=== PATIENT | male | born 1965 | race Caucasian/White ===

== ENCOUNTER → 2019-08-11 16:36 | Outpatient (CLI) | payer BC, SELFPAY ==
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
== END ==
LOC: EXPTRAD 16:40
PROVIDERS: PCP Family Medicine; Visit Provider Family Medicine
DX: M77.52 Other enthesopathy of left foot and ankle (principal); Z89.422 Acquired absence of other left toe(s)
CPT/HCPCS: 73630

== ENCOUNTER 2019-09-15 00:50 | Emergency (ER) | payer BC, SELFPAY ==
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
[2019-09-15 01:00] VITALS: BP 178/111; PULSE 91; RESP 16; TEMP 36.8; O2SAT 99
--- NOTE | 2019-09-15 01:17 | PC.NURSE ---
Wounds cleaned and flushed with normal saline.
[2019-09-15 02:16] VITALS: BP 161/97; PULSE 88; PULSE 89; RESP 16; RESP 22; TEMP 36.6; O2SAT 97; O2SAT 98
== END 2019-09-15 02:50 | disposition home or self-care (01) ==
PROVIDERS: Emergency Provider Emergency Medicine; PCP Family Medicine
DX: S01.01XA Laceration without foreign body of scalp, initial encounter (principal); F41.9 Anxiety disorder, unspecified; F32.9 Major depressive disorder, single episode, unspecified; Z86.73 Personal history of transient ischemic attack (TIA), and cerebral infarction without residual deficits; I10 Essential (primary) hypertension; E78.2 Mixed hyperlipidemia; Z79.01 Long term (current) use of anticoagulants; F17.210 Nicotine dependence, cigarettes, uncomplicated; V86.59XA Driver of other special all-terrain or other off-road motor vehicle injured in nontraffic accident, initial encounter
CPT/HCPCS: 12004; 12032; 70450; 72125; 99284

== ENCOUNTER → 2020-06-26 13:44 | Outpatient (CLI) | payer BC, SELFPAY ==
--- NOTE | ~2020-06-26 | XR_ITS ---
XR tibia fibula RT 2V DATE: 06/26/2020 13:58 INDICATION: Possible brown recluse spider bite 6 months ago. Pain at mid lateral calf TECHNIQUE: AP and lateral views COMPARISON: None FINDINGS: There is a chronic benign spur-like process at the anterior tibial tuberosity. No fracture, dislocation, periosteal reaction or bone destruction of the tibia or fibula. Normal alig nment at the knee and ankle joints. No radiopaque soft tissue foreign body or subcutaneous emphysema or abnormal soft tissue calcificatio n is noted. IMPRESSION: No significant abnormality Reviewed, dictated and finalized at location B. 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
== END ==
PROVIDERS: PCP Family Medicine; Visit Provider Family Medicine
DX: M79.604 Pain in right leg (principal)
CPT/HCPCS: 73590

== ENCOUNTER 2021-02-04 15:58 | Outpatient (CLI) | payer BC, SELFPAY ==
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
== END 2021-02-04 15:59 | disposition home or self-care (01) ==
LOC: ANHIMG 16:04
PROVIDERS: PCP Family Medicine; Visit Provider Family Medicine
DX: M25.522 Pain in left elbow (principal)
CPT/HCPCS: 73080

== ENCOUNTER 2021-06-09 09:31 | Outpatient (CLI) | payer BC, SELFPAY ==
--- NOTE | ~2021-06-09 | MR_ITS ---
EXAMINATION: MR elbow RT wo con DATE: 06/09/2021 10:38 INDICATION: Right elbow pain. TECHNIQUE: Magnetic resonance imaging (MRI) of the right elbow was performed without intravenous cont rast. Sequences included coronal and axial PD-weighted FS FSE, sagittal and axial STIR FSE, and coron al, axial, and sagittal PD-weighted FSE. COMPARISON: None FINDINGS: Osseous/other: Bone alignment is normal. No fracture. There is partial-thickness cartilage loss in the elbow joint i ncluding areas of deep partial-thickness cartilage loss at the ulnohumeral and radiocapitellar joints . Tendons: Brachialis tendon is normal. There is a tear of biceps tendon at its radial attachment involving appr oximately the ulnar-sided 60% of the tendon. There is edema and hematoma around the tendon. The commo n flexor and extensor tendons are normal. Ligaments: Radial collateral ligament, lateral ulnar collateral ligament, and ulnar collateral ligament are inta ct. Cubital tunnel: The ulnar nerve is normal. Fluid: There is no elbow joint effusion. IMPRESSION: 1. Partial tear of biceps tendon at its radial attachment. 2. Moderate elbow joint chondrosis. 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
== END 2021-06-09 09:32 | disposition home or self-care (01) ==
PROVIDERS: PCP Family Medicine; Visit Provider Nurse Practitioner Family
DX: S46.211A Strain of muscle, fascia and tendon of other parts of biceps, right arm, initial encounter (principal); M25.421 Effusion, right elbow
CPT/HCPCS: 73221

== ENCOUNTER → 2021-12-05 10:09 | Outpatient (CLI) | payer BC, SELFPAY ==
--- NOTE | ~2021-12-05 | XR_ITS ---
XR knee LT 3V 12/05/2021 10:25 Indication: Left knee pain Procedure: 3 views left knee Comparison: 10/27/2018 Findings: There is moderate osteoarthritis of the left knee. No fracture, subluxation or dislocation. No significant joint effusion. No foreign bodies. Impression: 1: Moderate osteoarthritis of the left knee. Reviewed, dictated and finalized at location A. Impression: 1: Moderate osteoarthritis of the left knee.
== END ==
PROVIDERS: PCP Family Medicine; Visit Provider Family Medicine
DX: M25.562 Pain in left knee (principal); G89.29 Other chronic pain; M17.12 Unilateral primary osteoarthritis, left knee
CPT/HCPCS: 73562

== ENCOUNTER 2022-01-01 11:23 | Emergency (ER) | payer BC, SELFPAY ==
--- NOTE | ~2022-01-01 | XR_ITS ---
EXAMINATION: XR chest 1V portable DATE: 01/01/2022 11:42 INDICATION: Coughing up blood TECHNIQUE: frontal view of the chest was obtained. COMPARISON: Chest radiograph dated 10/27/2018 FINDINGS: The lungs remain clear with no focal airspace opacities, pulmonary edema, pleural effusion or pneumot horax. The cardiomediastinal silhouette is normal. Visualized bones and soft tissues are unremarkable . IMPRESSION: 1. No acute cardiopulmonary disease. Reviewed, dictated and finalized at location B.
--- NOTE | ~2022-01-01 | CT_ITS ---
EXAMINATION: CT diagnostic chest w con DATE: 01/01/2022 13:45 INDICATION: Hemoptysis TECHNIQUE: Computed tomography (CT) of the chest was performed with 75 CC Omnipaque 300 intravenous c ontrast. Automated exposure control and iterative reconstruction technique were employed. Exam dose: 314.49 mGy-cm total exam DLP. COMPARISON: 01/01/2022 portable AP chest FINDINGS: Cardiomegaly. No pericardial or pleural effusion. Normal size and homogeneous enhancement of the thyroid gland. No thoracic aortic aneurysm or dissection. No hilar or mediastinal mass lesion or lymphadenopathy. There is mild patchy infiltrate throughout the right upper lobe, with involvement of the superior seg ment of the right lower lobe and to a lesser extent left upper lobe. 1.6 cm exophytic upper pole anterior right renal cyst Nodular appearing left adrenal gland, possibly due to small adrenal adenomas. Small sliding hiatal hernia. No suspicious osteolytic or osteosclerotic lesions. IMPRESSION: Mild patchy infiltrates of left upper lobe, superior segment right lower lobe and left u pper lobe primarily, suggesting bilateral pneumonia Reviewed, dictated and finalized at Location A. Reviewed, dictated and finalized at location A. IMPRESSION: Mild patchy infiltrates of left upper lobe, superior segment right lower lobe and left upper lobe primarily, suggesting bilateral pneumonia
[2022-01-01 11:27] VITALS: BP 153/91; PULSE 83; RESP 14; TEMP 36.6; O2SAT 97
[2022-01-01 11:40] VITALS: O2SAT 97
[2022-01-01 13:02] VITALS: BP 148/88; BP 151/99; PULSE 74; PULSE 81
[2022-01-01 13:03] VITALS: BP 162/104; PULSE 97
[2022-01-01 13:05] LABS: Basophils Absolute Auto 0.1 K/mm3 (0.0-0.1); Basophils Percent Auto 1.3 % (0.2-1.2); Eosinophils Absolute Auto 0.3 K/mm3 (0-0.3); Eosinophils Percent Auto 3.5 % (0-4.4); Hemoglobin 14.4 g/dL (14.0-18.0); Immature Granulocyte Absolute 0.02 K/mm3 (0.00-0.031); Immature Granulocyte Percent A 0.2 % (0-0.5); Lymphocytes Absolute Auto 2.17 K/mm3 (0.9-3.2); Lymphocytes Percent Auto 26.4 % (18.3-44.2); Mean Corpuscular HGB Conc 33.5 g/dl (32-36); Mean Corpuscular Hemoglobin 30.3 pg (26-34); Mean Corpuscular Volume 90.3 fl (80-100); Mean Platelet Volume 10.1 fl (7.4-10.4); Monocytes Absolute Auto 0.7 K/mm3 (0.1-0.6); Monocytes Percent Auto 8.9 % (2.6-8.5); Neutrophils Absolute Auto 4.9 K/mm3 (1.3-6.7); Neutrophils Percent Auto 59.7 % (45.5-73.1); Platelet Count Result 228 k/mm3 (150-375); Red Blood Count 4.76 M/mm3 (4.6-6.20); Red Cell Distribution Width 13.7 % (11.5-14.5); White Blood Count 8.2 K/mm3 (4.5-10.0)
--- NOTE | 2022-01-01 13:12 | ED.URI ---
HPI - URI/Sore Throat General Chief Complaint: Upper Respiratory Infection Stated Complaint: coughing blood x two days Time Seen by Provider: 01/01/22 12:04 Source: patient and RN notes reviewed Mode of arrival: ambulatory Limitations: no limitations History of Present Illness HPI Narrative: This is a 56 year old male who presents for evaluation of hemoptysis . Patient states 2 days ago he started coughing up blood. He states he believes he coughed up 1 ounce of bright red blood 2 days ago. He states it was minimal yesterday. He states today he coughed up sputum with blood. He also noticed blood when he blew his nose today. He denies chest pain, fever, shortness of breath, sinus congestion. He does not take any blood thinner. Onset (ago): day(s) (2) Consistency: improved Description of mucous: bloody Able to tolerate fluids by mouth: Yes Associated symptoms: cough Related Data Home Medications Medication Instructions Recorded Confirmed cinnamon bark 500 mg capsule 500 mg PO DAILY 05/12/19 12/11/21 (Cinnamon) cyanocobalamin (vitamin B-12) 1,000 mcg PO DAILY 05/12/19 12/11/21 1,000 mcg tablet (Vitamin B-12) lysine 500 mg tablet (L-Lysine) 500 mg PO DAILY 05/12/19 12/11/21 Allergies Allergy/AdvReac Type Severity Reaction Status Date / Time No Known Allergies Allergy Verified 01/01/22 11:43 Review of Systems Review of Systems: All systems reviewed & are unremarkable except as noted in HPI and below Constitutional: Constitutional: Denies chills and Denies fatigue ENT: Reports epistaxis, Denies nasal congestion and Denies sore throat Cardiovascular: Cardiovascular: Denies chest pain and Denies radiating jaw, neck or arm pain Respiratory: Respiratory: Denies chest congestion, Reports hemoptysis and Denies dyspnea Gastrointestinal: Gastrointestinal: Denies abdominal pain, Denies diarrhea and Denies nausea PMFSH Past Medical History Medical History Acute bronchitis Acute non-recurrent maxillary sinusitis Anxiety BMI 34.0-34.9,adult BMI 35.0-35.9,adult Chronic depression Colon cancer screening CVA (cerebral vascular accident) Dental abscess Elbow pain, left Encounter for prostate cancer screening Erectile dysfunction Essential (primary) hypertension Gastro-esophageal reflux disease without esophagitis Laceration of multiple sites of scalp and neck Left foot pain Mixed hyperlipidemia Obesity (BMI 30.0-34.9) Obstructive sleep apnea failure on CPAP due to intolerance BRIAN on CPAP Osteoarthritis of left knee Pain of elbow on movement Peptic ulcer disease Right elbow pain Right leg pain Seasonal allergic rhinitis Swelling of elbow Tobacco use disorder, continuous Surgical History Surgical History History of arthroscopic knee surgery Left Family History Family History Grandparent Acute myocardial infarction, Onset Age: 52 Family history of liver disease, Onset Age: 60 Family history of malignant neoplasm, Onset Age: 70 Father Hypertension Heart disease Cerebrovascular accident Mother Hypertension Social History Social History Smoking packs per day: 1 Smoking cigarettes per day: 20.0 Years smoked: 30 Smoking pack-years: 30.00 Smoking status: Current every day smoker Tobacco type: cigarettes Second hand tobacco smoke exposure: Yes Alcohol intake: current Drinks per week: 4 Alcohol use details: Beer Substance use: never 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
[2022-01-01 13:15] LABS: Alanine Aminotransferase 16 U/L (6-50); Albumin Level 4.4 g/dL (3.5-5.1); Alkaline Phosphatase 93 U/L (38-126); Anion Gap 4 mmol/L (8-16); Aspartate Amino Transferase 20 U/L (17-59); Bilirubin,Total 0.4 mg/dL (0.2-1.3); Blood Urea Nitrogen 13 mg/dL (9-20); Calcium 9.1 mg/dL (8.4-10.2); Carbon Dioxide 27 mmol/L (22-30); Chloride 107 mmol/L (98-107); Estimated CRCL calculation 120 ml/min; Estimated Glomerular Filt Rate > 60; Glucose 108 mg/dL (65-110); Potassium 3.6 mmol/L (3.4-5.0); Sodium 138 mmol/L (137-145)
[2022-01-01 13:16] LABS: INR 1.1; Prothrombin Time 13.3 Seconds (11.1-14.7)
[2022-01-01 13:17] LABS: Partial Thromboplastin Time 27.8 SECONDS (22.3-36.8)
[2022-01-01 13:23] LABS: D Dimer 0.33 ug/mL (<0.48)
[2022-01-01 15:05] VITALS: BP 156/100; PULSE 70; RESP 20; O2SAT 97
[2022-01-01 15:16] LABS: SARS-CoV-2 RNA PCR Negative
== END 2022-01-01 15:07 | disposition home or self-care (01) ==
PROVIDERS: Emergency Provider General Practice; PCP Family Medicine
DX: J18.9 Pneumonia, unspecified organism (principal); R04.2 Hemoptysis; E78.2 Mixed hyperlipidemia; I10 Essential (primary) hypertension; F17.210 Nicotine dependence, cigarettes, uncomplicated; Z86.73 Personal history of transient ischemic attack (TIA), and cerebral infarction without residual deficits; Z20.822 Contact with and (suspected) exposure to COVID-19
CPT/HCPCS: 36415; 71045; 71260; 80053; 85025; 85380; 85610; 85730; 99284; C9803; Q9967; U0003; U0005

== ENCOUNTER 2022-01-07 15:11 | Observation (INO) | payer BC, SELFPAY ==
[2022-01-07] VITALS (22 sets, daily range): BP systolic 149–177; BP diastolic 88–98; PULSE 61–82; RESP 14–24; TEMP 36.4; O2SAT 97–100; BMI 34.1
--- NOTE | ~2022-01-07 | XR_ITS ---
EXAMINATION: XR chest 2V Exam Date/Time: 01/07/2022 16:25 CDT HISTORY: Hemoptysis, COUGH, HX PNUEMONIA Comparison: 01/01/2022. RESULT: Lines, tubes, and devices: None. Lungs and pleura: Bibasilar scar/atelectasis. Cardiomediastinal silhouette: Stable cardiomediastinal silhouette. Other: No acute osseous or upper abdominal finding. IMPRESSION: No acute cardiopulmonary process. Reviewed, dictated and finalized at location K.
--- NOTE | ~2022-01-07 | XR_ITS ---
EXAMINATION: XR chest 2V 01/09/2022 08:17 INDICATION: Hemoptysis. PROCEDURE: 2 view chest COMPARISON: 01/07/2022 FINDINGS: The lungs are clear. The cardiomediastinal silhouette is within normal limits. There are no pleural effusions. There is no pneumothorax suspected. IMPRESSION: 1: NO ACUTE CARDIOPULMONARY DISEASE. Reviewed, dictated and finalized at location L.
--- NOTE | ~2022-01-07 | CT_ITS ---
EXAMINATION: CT diagnostic chest w con DATE: 01/07/2022 18:10 INDICATION: Hemoptysis TECHNIQUE: Computed tomography (CT) of the chest was performed with 75 mL Omnipaque 300 intravenous c ontrast. Automated exposure control and iterative reconstruction technique were employed. The dose-le ngth product was 441.69 mGy-cm. COMPARISON: 01/01/2022. FINDINGS: CHEST: Thoracic aorta: Mild arch calcification and ectasia. Lung parenchyma and airways: Patchy and centrilobular nodular groundglass opacities in the right uppe r lobe, with similar but much more subtle change in the left upper lobe and superior segments of the upper lobes. Patent airways. Right lower lobe peripheral intrapulmonary lymph node. Thoracic inlet, axillae and chest wall: No thyroid or soft tissue mass. No axillary lymphadenopathy. Mediastinum: No mass or lymphadenopathy. Heart and pericardium: Normal heart size. No pericardial effusion. Coronary artery calcifications: Mild. Pleura: No effusion or mass. Upper abdomen: Possible bilateral adrenal hyperplasia. Thoracic bones: No acute osseous finding in the chest. IMPRESSION: Evolving pulmonary opacities may represent infection and/or pulmonary hemorrhage. No active hemorrhag e or extravasation. Reviewed, dictated and finalized at location K. IMPRESSION: Evolving pulmonary opacities may represent infection and/or pulmonary hemorrhag e. No active hemorrhage or extravasation.
--- NOTE | 2022-01-07 15:36 | ED.URI ---
HPI - URI/Sore Throat General Chief Complaint: Upper Respiratory Infection Stated Complaint: Coughing up blood Time Seen by Provider: 01/07/22 15:36 Source: patient Mode of arrival: ambulatory Limitations: no limitations History of Present Illness HPI Narrative: Patient is 56 years old white male presents to the ED with the chief complaint of coughing up blood for the last 8 days. 1 day later was seen in our emergency room and had a diagnosis of pneumonia, and was discharged on doxycycline 100 mg twice daily for 7 days and albuterol inhaler. Patient believes that he is not getting better, still coughing up fresh bright red blood every now and then about 1 teaspoon on average 3-4 times a day. He denies any chest pain or shortness of breath. Patient reports 1 baby aspirin once a day. He denies any thigh coagulant medication. Also denies any fever, chills, nausea, vomiting, chest pain or shortness of breath. History of CVA, without residual deficiency, hypertension, tobacco dependence, alcohol use daily, denies drugs. Today is last day of his antibiotic. Related Data Home Medications Medication Instructions Recorded Confirmed cinnamon bark 500 mg capsule 500 mg PO DAILY 05/12/19 12/11/21 (Cinnamon) cyanocobalamin (vitamin B-12) 1,000 mcg PO DAILY 05/12/19 12/11/21 1,000 mcg tablet (Vitamin B-12) albuterol sulfate 90 mcg/actuation inhalation 01/07/22 01/07/22 aerosol inhaler amlodipine 5 mg tablet mg 01/07/22 bupropion HCl 150 mg 24 hr tablet, mg PO 01/07/22 extended release doxycycline monohydrate 100 mg mg 01/07/22 capsule duloxetine 60 mg capsule,delayed mg PO 01/07/22 release meloxicam 15 mg tablet mg 01/07/22 tadalafil 10 mg tablet mg 01/07/22 Allergies Allergy/AdvReac Type Severity Reaction Status Date / Time No Known Allergies Allergy Verified 01/07/22 15:43 Review of Systems Review of Systems: All systems reviewed & are unremarkable except as noted in HPI and below PMFSH Past Medical History Medical History Acute bronchitis Acute non-recurrent maxillary sinusitis Anxiety BMI 34.0-34.9,adult BMI 35.0-35.9,adult Chronic depression Colon cancer screening Community acquired pneumonia (~12/30/21) COVID negative. Chest x-ray 01/01/2022 with bilateral patchy infiltrates right lower lobe and left upper lobe. CVA (cerebral vascular accident) Dental abscess Elbow pain, left Encounter for prostate cancer screening Erectile dysfunction Essential (primary) hypertension Gastro-esophageal reflux disease without esophagitis Laceration of multiple sites of scalp and neck Left foot pain Mixed hyperlipidemia Obesity (BMI 30.0-34.9) Obstructive sleep apnea failure on CPAP due to intolerance BRIAN on CPAP Osteoarthritis of left knee Pain of elbow on movement Peptic ulcer disease Right elbow pain Right leg pain Seasonal allergic rhinitis Swelling of elbow Tobacco use disorder, continuous Surgical History Surgical History History of arthroscopic knee surgery Left Family History Family History Grandparent Acute myocardial infarction, Onset Age: 52 Family history of liver disease, Onset Age: 60 Family history of malignant neoplasm, Onset Age: 70 Father Hypertension Heart disease Cerebrovascular accident Mother Hypertension Social History Social History Smoking packs per day: 1 Smoking cigarettes per day: 20.0 Years smoked: 30 Smoking pack-years: 30.00 Smoking status: Current every day smoker Tobacco type: cigarettes Second hand tobacco smoke exposure: Yes Alcohol intake: current Drinks per week: 4 Alcohol use details: Beer Substance use: never 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
--- NOTE | 2022-01-07 15:37 | ECG_ITS ---
Measurements Intervals [place] Rate: 75 P: 54 WI: 193 QRS: 35 QRSD: 105 T: 24 QT: 387 QTc: 434 Interpretive Statements SINUS RHYTHM VENTRICULAR PREMATURE COMPLEX INCOMPLETE RIGHT BUNDLE BRANCH BLOCK DELAYED PRECORDIAL R/S TRANSITION BORDERLINE T WAVE ABNORMALITY- INFERIOR LEADS BORDERLINE ECG Electronically Signed On 01-07-2022 15:55:11 CDT by Armen Chapman D.O.
[2022-01-07 16:27] LABS: Basophils Absolute Auto 0.1 K/mm3 (0.0-0.1); Basophils Percent Auto 1.1 % (0.2-1.2); Eosinophils Absolute Auto 0.6 K/mm3 (0-0.3); Eosinophils Percent Auto 7.4 % (0-4.4); Hemoglobin 13.5 g/dL (14.0-18.0); Immature Granulocyte Absolute 0.03 K/mm3 (0.00-0.031); Immature Granulocyte Percent A 0.4 % (0-0.5); Lymphocytes Absolute Auto 2.23 K/mm3 (0.9-3.2); Lymphocytes Percent Auto 28.3 % (18.3-44.2); Mean Corpuscular HGB Conc 32.9 g/dl (32-36); Mean Corpuscular Hemoglobin 30.4 pg (26-34); Mean Corpuscular Volume 92.3 fl (80-100); Mean Platelet Volume 10.2 fl (7.4-10.4); Monocytes Absolute Auto 0.9 K/mm3 (0.1-0.6); Neutrophils Absolute Auto 4.1 K/mm3 (1.3-6.7); Neutrophils Percent Auto 51.8 % (45.5-73.1); Platelet Count Result 257 k/mm3 (150-375); Red Blood Count 4.44 M/mm3 (4.6-6.20); Red Cell Distribution Width 13.8 % (11.5-14.5); White Blood Count 7.9 K/mm3 (4.5-10.0)
[2022-01-07 16:37] LABS: Lactic Acid Reflex 0.8 mmol/L (0.7-2.0)
[2022-01-07 16:39] LABS: Prothrombin Time 12.9 Seconds (11.1-14.7)
[2022-01-07 16:41] LABS: Alanine Aminotransferase 16 U/L (6-50); Albumin Level 4.4 g/dL (3.5-5.1); Alkaline Phosphatase 81 U/L (38-126); Anion Gap 5 mmol/L (8-16); Aspartate Amino Transferase 19 U/L (17-59); Bilirubin,Total 0.3 mg/dL (0.2-1.3); Blood Urea Nitrogen 19 mg/dL (9-20); CRP 1.1 mg/dL (<1.0); Calcium 8.8 mg/dL (8.4-10.2); Carbon Dioxide 27 mmol/L (22-30); Chloride 107 mmol/L (98-107); Estimated CRCL calculation 106 ml/min; Estimated Glomerular Filt Rate > 60; Glucose 94 mg/dL (65-110); Potassium 3.7 mmol/L (3.4-5.0); Sodium 139 mmol/L (137-145)
[2022-01-07 17:04] LABS: SARS-CoV-2 RNA PCR Negative
[2022-01-07 17:16] LABS: D Dimer 0.34 ug/mL (<0.48)
[2022-01-07] MEDS: ALBUTEROL SULFATE NEB 2.5 MG/3 ML INH 5 MG INHALATION (20:23)
--- NOTE | 2022-01-07 22:42 | ADMGEN ---
This patient, Avi Mcqueen, was admitted to Medical Room 243-01. Patient/family oriented to hospital policies and general routines including ID bracelet, bed and alarms, visiting hours, pain management, procedures, bathroom and other care routines, personal items, smoking policy, room service/diet, and visiting hours. Information on how to activate the Rapid Response Team has been discussed. Patient/Family are encouraged to report perceived risks to care and to ask questions if they do not understand what they are told or what they should do.
[2022-01-08] VITALS (12 sets, daily range): BP systolic 135–149; BP diastolic 75–89; PULSE 68–82; RESP 14–18; TEMP 36.4–37.1; O2SAT 97–100
[2022-01-08] MEDS: ALBUTEROL SULFATE NEB 2.5 MG/0.5 ML INH 5 MG (01:57)
[2022-01-08] MEDS: ALBUTEROL SULFATE NEB 2.5 MG/3 ML INH INHALATION ×3 (08:01→21:04)
[2022-01-08 08:33] LABS: Basophils Absolute Auto 0.1 K/mm3 (0.0-0.1); Basophils Percent Auto 1.1 % (0.2-1.2); Eosinophils Absolute Auto 0.4 K/mm3 (0-0.3); Eosinophils Percent Auto 4.6 % (0-4.4); Hematocrit 39.4 % (42.0-52.0); Hemoglobin 13.3 g/dL (14.0-18.0); Immature Granulocyte Absolute 0.02 K/mm3 (0.00-0.031); Immature Granulocyte Percent A 0.3 % (0-0.5); Lymphocytes Absolute Auto 1.69 K/mm3 (0.9-3.2); Lymphocytes Percent Auto 22.3 % (18.3-44.2); Mean Corpuscular HGB Conc 33.8 g/dl (32-36); Mean Corpuscular Hemoglobin 30.5 pg (26-34); Mean Corpuscular Volume 90.4 fl (80-100); Mean Platelet Volume 10.1 fl (7.4-10.4); Monocytes Absolute Auto 0.6 K/mm3 (0.1-0.6); Monocytes Percent Auto 7.8 % (2.6-8.5); Neutrophils Absolute Auto 4.9 K/mm3 (1.3-6.7); Neutrophils Percent Auto 63.9 % (45.5-73.1); Platelet Count Result 233 k/mm3 (150-375); Red Blood Count 4.36 M/mm3 (4.6-6.20); Red Cell Distribution Width 13.6 % (11.5-14.5); White Blood Count 7.6 K/mm3 (4.5-10.0)
[2022-01-08 08:45] LABS: Anion Gap 8 mmol/L (8-16); Blood Urea Nitrogen 13 mg/dL (9-20); Carbon Dioxide 25 mmol/L (22-30); Chloride 105 mmol/L (98-107); Estimated CRCL calculation 123 ml/min; Estimated Glomerular Filt Rate > 60; Glucose 138 mg/dL (65-110); Potassium 3.5 mmol/L (3.4-5.0); Sodium 138 mmol/L (137-145)
--- NOTE | 2022-01-08 11:02 | PM.CNPUL ---
Assessment and Plan Assessment and plan (1) Cough with hemoptysis: Code(s): R04.2 - Hemoptysis Status: Acute Assessment and Plan: Patient with the 33 pack year of tobacco use and currently smoking until 01/07 who presents with 1 week of hemoptysis without fever, chills, rigors, leukocytosis and a CT scan with patchy infiltrates. The patient was treated with doxycycline for 6 days with no improvement. Etiology of hemoptysis includes bronchitis, tracheobronchitis, bronchiolitis, pneumonia, Tobacco related airway injury. I doubt that he has a focal pneumonia, Connective tissue disorder with vasculitis or lung cancer. his hemoptysis is improved today. I will continue vancomycin and Levaquin. Will obtain chest x-ray in the morning. he does have rhonchorous lung sounds today and I will add ipratropium nebulizer to his albuterol nebulizer. Will reassess him in the morning. History of Present Illness History of Present Illness Consult date: 01/08/22 Chief complaint: Pneumonia, hemotysis Narrative: 01/08/2022: This is a new Pulmonary consultation for hemoptysis. 56-year-old male with a history of a stroke 4 years ago with left upper and lower extremity weakness that his 99% recovered. Patient is on no respiratory medicine and has no history of respiratory disease throughout his life. He is on limited from a respiratory viewpoint in his activities of daily living. On 12/29/2021 the patient tells me he developed cough with hemoptysis. He states that over the day he cough 3-4 times with a tbsp of blood each time. He denied fever, chills, rigors, chest pain or shortness of breath. He denied vomiting. He denied nose bleeds. This level of hemoptysis continued on 12/30 and and he presented to the emergency department on 01/01/2022. In the emergency room he had a white blood cell count of 8.2, normal chemistries, COVID negative, chest x-ray that showed no active disease. A CT scan of the chest was obtained that demonstrated mild patchy infiltrates left upper lobe, superior segment right lower lobe and left upper lobe suggesting pneumonia. Patient was treated with doxycycline and inhaler. The patient had no change in his hemoptysis and continue to work throughout this period. The hemoptysis continued and he presented to the emergency room on 01/07. he was afebrile with a with white blood cell count of 7.9, chest x-ray with no acute cardiopulmonary process and a CT angiogram demonstrating minimally increased patchy infiltrates the right upper lobe and very subtle changes in left upper lobe . Room air saturations were 95%. Patient was started on vancomycin and Levaquin. Patient is a current smoker and his last cigarette was 01/07 at 12 noon. He smoked from age [age] at 1 packs per day for 33 pack years. He denies vaping, illicit drug use, sandblasting, welding, asbestos were, professional painting. 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 He has no exposure to secondhand smoke. 01/08/2022. I talked to the patient and he was in no respiratory distress on room air with saturations 98%. He denied fever, chill a so, rigors, cough and states that his hemoptysis had improved this morning. I had the patient expected rate into a tissue and he had clear phlegm with dark red blood that occupied approximately 20% of the expectorations. He states that this represents no bright red blood which he had before and it is now darker. DATAEXAMINATION: CT diagnostic chest w con DATE: 01/07/2022 18:10 INDICATION: Hemoptysis TECHNIQUE: Computed tomography (CT) of the chest was performed with 75 mL Omnipaque 300 intravenous contrast. Automated exposure control and iterative reconstruction technique were employed. The dose-length product was 441.69 mGy-cm. COMPARISON: 01/01/2022. FINDINGS: CHEST: Thoracic aorta: Mild arch calcification and ectasia. Lung
[2022-01-08] MEDS: IPRATROPIUM BR 0.02% INH SOLN 0.5 MG/2.5 ML VIAL INHALATION ×2 (14:58→21:04)
--- NOTE | 2022-01-08 15:10 | PM.IMHP ---
H&P: HPI History of Present Illness Date/Time: 01/08/22 15:10 Chief Complaint: Hemoptysis Narrative: Date of service: 01/08/2022 Avi Mcqueen is a 56-year-old male with a history of anxiety, depression, hypertension, untreated sleep apnea, tobacco abuse, CVA 4 years ago with associated left-sided weakness which is nearly resolved who presented to the emergency department on 01/07/2022 with complaints of hemoptysis. He had been evaluated in the ED 6 days prior on 01/01/2022 due to complaints of hemoptysis starting 3 days prior to presentation. He was coughing up about a teaspoon of bright red blood each time he had an episode of coughing. At that time, he had a chest CT which revealed bilateral pneumonia. He was given a 7 day course of doxycycline and prescribed an albuterol inhaler. The patient has been compliant with doxycycline and states he has been using his albuterol inhaler 1-2 times per day. Unfortunately despite this, his hemoptysis remained persistent. He did call his doctor for evaluation of this and was scheduled for an appointment yesterday but instead was directed to the ER. He states up until yesterday he was continuing to expectorants about a teaspoon of bright red blood each time he coughed. He complained of a hacking cough. On arrival to the ED, his vital signs were stable, he was afebrile and maintaining adequate O2 sats on room air, hemoglobin 13.5, chest x-ray showed no acute cardiopulmonary disease, and CT of the chest showed evolving pulmonary opacities which may represent infection and/or pulmonary hemorrhage with no active hemorrhage or extravasation. At the time of my evaluation today, he is feeling just slightly improved. His sputum has changed and he now has dark red blood mixed with mucus. He has been admitted to the hospitalist service for observation. Supervising physician for this history and physical is Dr. Letitia Leos. Review of Systems Review of Systems: All systems reviewed with pertinent positives and negatives as per HPI. Additionally, the patient denies any additional sources of bleeding including hematochezia, melena, hematemesis, epistaxis. He denies wheezing, shortness of breath, RODRIGUEZ. No fevers or chills. He did endorse feeling weak and fatigued. Occasionally feels lightheaded with standing. Denies nausea or vomiting. Appetite has been fine. He does feel a bit shaky today and feels this is due to nicotine craving. He completed his COVID-19 vaccination but did not receive a booster. He did receive the flu shot. [facility] Past Medical History Medical History (Updated 01/08/22 @ 15:27 by Ginny Colón PA-C) Amputation of third toe, left, traumatic Lawnmower injury Anxiety BMI 34.0-34.9,adult Chronic depression Community acquired pneumonia (~12/30/21) COVID negative. Chest x-ray 01/01/2022 with bilateral patchy infiltrates right lower lobe and left upper lobe. CVA (cerebral vascular accident) Dental abscess Erectile dysfunction Essential (primary) hypertension Gastro-esophageal reflux disease without esophagitis Laceration of multiple sites of scalp and neck Mixed hyperlipidemia Obesity (BMI 30.0-34.9) Obstructive sleep apnea failure on CPAP due to intolerance BRIAN on CPAP Osteoarthritis of left knee Peptic ulcer disease Seasonal allergic rhinitis Tobacco use disorder, continuous Surgical History Surgical History History of arthroscopic knee surgery Left Family History Family History Grandparent Acute myocardial infarction, Onset Age: 52 Family history of liver disease, Onset Age: 60 Family history of malignant neoplasm, Onset Age: 70 Father Hypertension Heart disease Cerebrovascular accident Mother Hypertension Social History Social History (Updated 01/08/22 @ 15:31 by Ginny Colón PA-C) Social History: Mr. Butler
[2022-01-09 01:45] VITALS: PULSE 73; RESP 20
[2022-01-09 01:55] VITALS: PULSE 75; RESP 22
[2022-01-09] MEDS: ALBUTEROL SULFATE NEB 2.5 MG/3 ML INH INHALATION ×2 (01:58→08:52)
[2022-01-09] MEDS: IPRATROPIUM BR 0.02% INH SOLN 0.5 MG/2.5 ML VIAL INHALATION ×2 (01:58→08:52)
[2022-01-09 05:30] LABS: Hematocrit 38.4 % (42.0-52.0); Hemoglobin 12.5 g/dL (14.0-18.0); Mean Corpuscular HGB Conc 32.6 g/dl (32-36); Mean Corpuscular Volume 92.3 fl (80-100); Mean Platelet Volume 10.1 fl (7.4-10.4); Platelet Count Result 226 k/mm3 (150-375); Red Blood Count 4.16 M/mm3 (4.6-6.20); Red Cell Distribution Width 13.6 % (11.5-14.5); White Blood Count 6.6 K/mm3 (4.5-10.0)
[2022-01-09 05:42] LABS: Anion Gap 7 mmol/L (8-16); Blood Urea Nitrogen 15 mg/dL (9-20); Calcium 9.3 mg/dL (8.4-10.2); Carbon Dioxide 26 mmol/L (22-30); Chloride 108 mmol/L (98-107); Estimated CRCL calculation 108 ml/min; Estimated Glomerular Filt Rate > 60; Glucose 103 mg/dL (65-110); Potassium 3.8 mmol/L (3.4-5.0); Sodium 141 mmol/L (137-145)
[2022-01-09 05:47] VITALS: BP 145/89; PULSE 58; RESP 14; TEMP 36.6; O2SAT 95
[2022-01-09 06:03] LABS: Vancomycin Trough 10.8 ug/mL (10.0-20.0)
[2022-01-09] MEDS: amLODIPine BESYLATE 5 MG TABLET PO (08:27)
[2022-01-09] MEDS: CYANOCOBALAMIN 1,000 MCG TABLET 1000 MCG PO (08:27)
[2022-01-09] MEDS: DULoxetine HCL 60 MG CAPSULE.DR PO (08:27)
[2022-01-09 08:52] VITALS: PULSE 67; RESP 20
[2022-01-09 09:07] VITALS: PULSE 90; RESP 20
--- NOTE | 2022-01-09 09:28 | PM.PNPUL ---
Progress Note: A&P Assessment and Plan (1) Cough with hemoptysis: Code(s): R04.2 - Hemoptysis Status: Acute Assessment and Plan: 01/08 Patient with the 33 pack year of tobacco use and currently smoking until 01/07 who presents with 1 week of hemoptysis without fever, chills, rigors, leukocytosis and a CT scan with patchy infiltrates. The patient was treated with doxycycline for 6 days with no improvement. Etiology of hemoptysis includes bronchitis, tracheobronchitis, bronchiolitis, pneumonia, Tobacco related airway injury. I doubt that he has a focal pneumonia, Connective tissue disorder with vasculitis or lung cancer. he is on ASA for previous stroke. his hemoptysis is improved today. I will continue vancomycin and Levaquin. Will obtain chest x-ray in the morning. he does have rhonchorous lung sounds today and I will add ipratropium nebulizer to his albuterol nebulizer. Will reassess him in the morning. 01/09 Patient with 1 bloody expectoration over the last 24 hours. Chest x-ray today without focal infiltrate. Room air sats remained 95%. I suspect the etiology of his hemoptysis is a bronchitis with heavy coughing while being on aspirin. He will need follow-up imaging by CT scan in 6-8 weeks to ensure resolution of his faint infiltrates. he does have a smoking history and had does have a chronic cough. I recommend initiation of a long-acting muscarinic antagonist for possible COPD with out patient PFTs. from a pulmonary perspective patient is ready for discharge on these pulmonary medicines. Levofloxacin 750 mg PO Q day for 8 days Muscarinic antagonist that insurance will cover (atrovent 2 puffs Q 6 HR, incruse ellipta 62.5 at 1 puffs Q day, spireva 18 mics at 1 puff Q day or spireva respimat 2.5 mics at 1 puff Q day). Rescue albuterol 2 puffs q.4 hours p.r.n. shortness of breath and wheezing. Restart his home dose of aspirin 3 days after his hemoptysis has resolved CT scan in 6-8 weeks. follow-up with his primary physician and referred to Pulmonary Clinic if hemoptysis persists or repeat CT scan with persistent abnormalities. Discussed with Dr. Colón. (2) Tobacco abuse: Code(s): Z72.0 - Tobacco use Status: Acute Assessment and Plan: I spent greater than 12 minutes counseling to patient on tobacco cessation. He understands that he must quit smoking cigarettes at this time as this may be causing airway inflammation leading to cough, bronchitis which may be contributing to his hemoptysis. He understands that he must quit and he tells me he can quit. Subjective Date/time seen: 01/09/22 09:28 Interval history: ?01/08/2022:? This is a new Pulmonary consultation for hemoptysis.? 56-year-old male with a history of a stroke 4 years ago with left upper and lower extremity weakness that his 99% recovered.? Patient is on no respiratory medicine and has no history of respiratory disease throughout his life.? He is on limited from a respiratory viewpoint in his activities of daily living.? On 12/29/2021 the patient tells me he developed cough with hemoptysis.? He states that over the day he cough 3-4 times with a tbsp of blood each time.? He denied fever, chills, rigors, chest pain or shortness of breath.? He denied vomiting.? He denied nose bleeds.? This level of hemoptysis continued on 12/30 and and he presented to the emergency department on 01/01/2022. ? In the emergency room he had a white? blood cell count of 8.2, normal chemistries, COVID negative, chest x-ray that showed no active disease. ? A CT scan of the chest was obtained that demonstrated mild patchy infiltrates left upper lobe, superior segment right lower lobe and left upper lobe suggesting pneumonia.? Patient was treated with doxycycline and inhaler.? The patient had no change in his hemoptysis and continue to work throughout this period. ? The hemoptysis continued and he presented to the emergency room
--- NOTE | 2022-01-09 12:08 | PM.DS ---
DS: Admitting Diagnosis Discharge Date 01/09/2022 Admitting Diagnosis Hemoptysis DS: Discharge Diagnosis Discharge Diagnosis (1) Cough with hemoptysis: Code(s): R04.2 - Hemoptysis Status: Acute Assessment and Plan: Patient with bright red hemoptysis x1 week Completed 6 days of p.o. doxycycline outpatient with no improvement Chest CT showed ground-glass opacities which may represent infection and/or pulmonary hemorrhage May be due to bronchitis vs tracheobronchitis Likely worsened due to smoking and aspirin use He was seen in consultation by pulmonology Received IV vancomycin and levofloxacin during admission. will continue with p.o. levofloxacin 750 mg daily for 8 days He should hold aspirin for 3 days following complete resolution of hemoptysis will need repeat chest CT in 6-8 weeks and follow-up with PCP. Referral to pulmonology at discretion of PCP started on Spiriva Respimat 2.5 mcg 1 puff daily (2) Community acquired pneumonia: Code(s): J18.9 - Pneumonia, unspecified organism Status: Acute Assessment and Plan: See above. Patient remained afebrile, no leukocytosis COVID negative continue p.o. levofloxacin as above repeat chest CT in 6-8 weeks albuterol rescue inhaler as needed (3) Obstructive sleep apnea: Code(s): G47.33 - Obstructive sleep apnea (adult) (pediatric) Status: Acute Assessment and Plan: Untreated. Patient states he cannot tolerate CPAP Needs to follow up with PCP to consider alternative treatment options including oral device (4) Essential (primary) hypertension: Code(s): I10 - Essential (primary) hypertension Status: Acute Assessment and Plan: Blood pressure reviewed and was stable Continue home amlodipine (5) Tobacco abuse: Code(s): Z72.0 - Tobacco use Status: Acute Assessment and Plan: Patient smokes 1 pack per day for 30 years Smoking cessation is imperative. educated patient on smoking cessation for 6 minutes. He is motivated to quit smoking. Continue nicotine patch 21 mg daily. Follow-up with PCP for taper DS: Summary Hospital Course Hospital Course: date of admission: 01/07/2022 date of discharge: 01/09/2022 Avi Mcqueen is a 56-year-old male with a history of anxiety, depression, hypertension, untreated sleep apnea, tobacco abuse, CVA 4 years ago with associated left-sided weakness which is nearly resolved who presented to the emergency department on 01/07/2022 with complaints of hemoptysis. had been taking outpatient doxycycline without improvement. On arrival to the ED, his vital signs were stable, he was afebrile and maintaining adequate O2 sats on room air, hemoglobin 13.5, chest x-ray showed no acute cardiopulmonary disease, and CT of the chest showed evolving pulmonary opacities which may represent infection and/or pulmonary hemorrhage with no active hemorrhage or extravasation. He was admitted to the hospitalist service for further evaluation and management was seen in consultation by pulmonology. Please see above for further details. His hemoptysis improved and he was overall feeling much better. Given overall improvement, he was determined to no longer require inpatient care and was discharged in hemodynamically stable condition on 01/09/2022. He will follow-up with his primary care provider and obtain outpatient repeat CT scan. Educated patient and his on his new medications. Smoking cessation discussed at length. Time spent discussing smoking cessation with patient: 3 to 10 minutes Status at Discharge Functional status at discharge: independent ambulation Overall status at discharge: patient is progressing back to baseline Time Spent with Patient Time attestation: Total time spent providing and/or coordinating discharge services: 45 minutes Time spent: Greater than 30 minutes Exam Narrative: General: Well-nourished, well-dave
== END 2022-01-09 12:22 | disposition home or self-care (01) ==
LOC: ANHED 19:14 → ANH2MED 01-08 01:26
PROVIDERS: Admitting Provider Internal Medicine; Emergency Provider Emergency Medicine; PCP Family Medicine; Visit Provider Physician Assistant
DX: J18.9 Pneumonia, unspecified organism (principal); R04.2 Hemoptysis; G47.33 Obstructive sleep apnea (adult) (pediatric); I10 Essential (primary) hypertension; F17.210 Nicotine dependence, cigarettes, uncomplicated; F41.9 Anxiety disorder, unspecified; F32.A Depression, unspecified; Z86.73 Personal history of transient ischemic attack (TIA), and cerebral infarction without residual deficits; K21.9 Gastro-esophageal reflux disease without esophagitis; E78.2 Mixed hyperlipidemia; E66.9 Obesity, unspecified; Z68.34 Body mass index [BMI] 34.0-34.9, adult; K27.9 Peptic ulcer, site unspecified, unspecified as acute or chronic, without hemorrhage or perforation; J31.0 Chronic rhinitis; Z72.89 Other problems related to lifestyle; Z20.822 Contact with and (suspected) exposure to COVID-19; R94.2 Abnormal results of pulmonary function studies; I49.3 Ventricular premature depolarization; I45.10 Unspecified right bundle-branch block; N52.9 Male erectile dysfunction, unspecified; Z79.51 Long term (current) use of inhaled steroids; Z79.1 Long term (current) use of non-steroidal anti-inflammatories (NSAID); Z79.899 Other long term (current) drug therapy; Z79.82 Long term (current) use of aspirin
CPT/HCPCS: 36415; 71046; 71260; 80048; 80053; 80202; 83605; 85025; 85027; 85380; 85610; 85730; 86140; 87040; 93005; 94640; 96365; 96366; 96368; 99285; A9270; C9803; G0378; J1956; J3370; Q9967; U0003; U0005

== ENCOUNTER 2022-04-08 14:40 | Outpatient (CLI) | payer BC, SELFPAY ==
--- NOTE | ~2022-04-08 | MR_ITS ---
EXAMINATION: MR knee RT wo con DATE: 04/08/2022 15:28 INDICATION: Right knee pain. TECHNIQUE: Magnetic resonance imaging (MRI) of the right knee was performed without intravenous contr ast. Sequences included axial PD-weighted FS FSE, coronal PD-weighted FSE and PD-weighted FS FSE, sag ittal PD-weighted FSE, and sagittal T2-weighted FS FSE. COMPARISON: X-ray right knee 02/27/2022. FINDINGS: Medial compartment: Focal horizontal cleavage type tear of the body of the medial meniscus. Vertically oriented tear at t he meniscal root ligament, with mild extrusion medially. Diffuse full-thickness cartilage loss on the medial aspect of the medial femoral condyle and medial tibial plateau, with subchondral sclerosis an d marrow edema. Mild osteophytosis. Lateral compartment: Intact meniscus. Mild diffuse cartilage thinning. Mild osteophytosis. Patellofemoral compartment: Minimal focal partial thickness cartilage defect on the median ridge and lateral facet. Mild osteophy tosis. Retinacula are intact. Ligaments and tendons: MCL, LCL, ACL, and PCL are intact. Longitudinal hyperintense signal in the distal semimembranosus ten don. Abnormal signal deep to the pes anserine tendons. Remaining flexor and extensor tendons are inta ct. Fluid: Large volume joint fluid. Osseous/other: No suspicious focal or diffuse marrow signal. IMPRESSION: 1. Horizontal cleavage and vertical meniscal root ligament tears of the medial meniscus, with mild me dial meniscal extrusion, and subjacent marrow edema. 2. Large joint effusion. 3. Partial tear of the semitendinosus tendon. 4. Pes anserine bursitis. Reviewed, dictated and finalized at location K. IMPRESSION: 1. Horizontal cleavage and vertical meniscal root ligament tears of the medial meniscus, with mild medial meniscal extrusion, and subjacent marrow edema. 2. Large joint effusion. 3. Partial tear of the semitendinosus tendon. 4. Pes anserine bursitis.
== END 2022-04-08 14:41 | disposition home or self-care (01) ==
PROVIDERS: PCP Family Medicine; Visit Provider Nurse Practitioner
DX: M25.561 Pain in right knee (principal); S83.241A Other tear of medial meniscus, current injury, right knee, initial encounter; M25.461 Effusion, right knee; S86.811A Strain of other muscle(s) and tendon(s) at lower leg level, right leg, initial encounter; M71.561 Other bursitis, not elsewhere classified, right knee
CPT/HCPCS: 73721

== ENCOUNTER 2022-04-14 08:06 | Outpatient (RCR) | payer BC, SELFPAY ==
--- NOTE | 2022-04-14 14:58 | PTOPEVDC ---
Assessment and note entered by Patricia Ash, PT, DPT Thank you for referring Avi Mcqueen to [facility].? An evaluation has been completed. No further treatment is needed. Evaluation Information Assessment Status Evaluation Diagnosis brandon knee pre-op walking training. Onset chronic Subjective Information Pt states he is here today for walker training prior to a having a R knee score on Nov , and a L TKA after that. Pt states he completed a round of therapy prior to this, but he does not still do these at this time. Pt states he lives in a 2 level home with his bathroom and bed room on the main level. There are 3 JENIFFER the home, with 2 JENIFFER his bed room. Reported Pain Level Pain Score 6: Self Report Assessment PT Clinical Summary Avi presents to therapy today for his initial evaluation and for walker training so he can begin using a walker prior to his upcoming knee surgery. Today he was given extensive demonstration, education, and practice for the following topics: gait training with FWW with partial WB and none WB , curb step forward/backwards with FWW examples given for both partial WB and non WB, ascend rear facing up 2 consecutive steps with FWW with both partial WB and none WB, instruction on sit<> stand from chair with FWW. He was given hand outs for the topics covered during walker training as well as for a HEP to complete prior to surgery. Today he requires frequent cueing to correct mechanics, sequencing, and weight bearing status. It was recommended that he given walking with the walker after this session. Pt states he will be completing skilled therapy at a [facility] facility post-op so he will be discharged from skilled therapy services at this time. Plan of Care Treatment Frequency and eval and discharge Duration
== END 2022-04-17 14:18 | disposition home or self-care (01) ==
LOC: ANHGOSHPT 08:06
PROVIDERS: PCP Family Medicine; Visit Provider Orthopaedic Surgery
DX: S83.241D Other tear of medial meniscus, current injury, right knee, subsequent encounter (principal)
CPT/HCPCS: 97116; 97161

== ENCOUNTER 2022-04-28 00:02 | Day surgery (SDC) | payer BC, SELFPAY ==
[2022-04-25 09:20] VITALS: BMI 34.2
--- NOTE | 2022-04-25 09:28 | PC.NURSE ---
Report to the Outpatient Waiting Room, entrance under the green pavilion located off [facility], at time ___0830____ on date __04/28/22 . Planned Procedure Time: __1030 . Time changes happen often and if your time is changed the preop area will call you the afternoon before. - You and your visitor will be asked to self-screen and do not enter if you have any COVID symptoms. - We encourage only one visitor and NO visitors under age 16 are allowed at this time. Your visitor will receive communication by the phone number that is given day of service. - The patient visitor is requested to social distance or may leave the building when not with patient due to restrictions. - A mask is required within the hospital. Patients may have clear liquids (water, carbonated beverages, clear teas, apple juice) until 3 hours prior to surgery (0730 AM) with a maximum of 20 ounces. - No food from midnight until time of surgery - Infants may have breast milk until 4 hours before surgery, infant formula 6 hours prior to surgery. - Children will be allowed to drink immediately following surgery. If applicable, please bring a bottle or sippy cup to assist with drinking. Juice, water, soda, and popsicles are readily available. For infants on formula, please bring formula the day of surgery. Pacifiers are allowed. Take the following medications with a SIP of water the morning of surgery: TRAMADOL IF NEEDED Medications to discontinue per physician _ASPIRIN PER DR. WEBBER'S INSTRUCTIONS_ Date to take last dose Please no make-up, nail libyan, hairspray, perfume, deodorant, or body powder the day of surgery. No jewelry (including any body piercings) or valuables the day of surgery, leave them at home. Please take a shower or bath the night before, or the morning of, surgery with an antibacterial soap. Wear comfortable, loose fitting clothing. Children are encouraged to wear pajamas. - Jewelry must be removed prior to entering the operating room. Rings and piercings that are not removed may be cut off. - The hospital will not accept responsibility for valuables. - Please leave all valuables, including medications, at home the day of surgery. If you are going home after surgery, a licensed recycle driver must drive you home. - NO public transportation without another adult. - We recommend that an adult stay with you for 24 hours following discharge. - We also recommend that you do not drive, make important decision, drink alcoholic beverages, or take any drugs that were not prescribed by your health care provider for at least 24 hours after your discharge time. For Pediatric surgeries, we recommend two adults accompany the child home. Follow any additional instructions given to you from your surgeon. If you or anyone in your household have experienced Covid symptoms in the past week, please notify your surgeon or the nurse liaison at the phone number below for possible testing. Telephone instructions given to ____PT and asked if any additional questions and then verbalized understanding. Patient advised to call surgeon office or pre surgery nurse liaison [phone] if any additional questions.
[2022-04-28] VITALS (8 sets, daily range): BP systolic 130–158; BP diastolic 82–98; PULSE 58–83; RESP 12–21; TEMP 36.7–36.8; O2SAT 95–100; BMI 34.0
[2022-04-28] MEDS: LACTATED RINGERS 1,000 ML 30 ML IV CONT ×2 (08:56→12:11)
[2022-04-28] MEDS: ACETAMINOPHEN 500 MG TABLET 1000 MG PO (08:57)
[2022-04-28] MEDS: KETOROLAC 15 MG/ML VIAL (*BKC) IV PUSH (09:00)
--- NOTE | 2022-04-28 09:00 | WPDANESEPPF ---
Anes - Initial Pre Proc Eval Procedure: Operation Date: 04/28/22 10:30 Proposed Procedures p Right Knee Arthroscopy with Meniscectomy - Enzo Thurman MD Date/Time: 04/28/22 09:00 Surgeon: Enzo Thurman MD Pre Op Diagnosis: right knee medial meniscal tear Patient Data Age: 56 Gender: M Height: 1.73 m Weight: 101.6 kg Last Vital Signs Temp 36.7 C 04/28/22 08:20 Pulse 69 04/28/22 08:20 Resp 16 04/28/22 08:20 BP 149/88 H 04/28/22 08:20 Pulse Ox 99 04/28/22 08:20 O2 Del Method Room Air 04/28/22 08:20 Allergies Allergy/AdvReac Type Severity Reaction Status Date / Time No Known Allergies Allergy Verified 04/28/22 08:31 Home Medications Medication Instructions Recorded Confirmed Type cinnamon bark 500 mg capsule 500 mg PO DAILY 05/12/19 04/28/22 History (Cinnamon) cyanocobalamin (vitamin B-12) 1,000 mcg PO DAILY 05/12/19 04/28/22 History 1,000 mcg tablet (Vitamin B-12) albuterol sulfate 90 mcg/actuation 90 mcg inhalation Q6H PRN 01/07/22 04/25/22 History aerosol inhaler Shortness Of Breath amlodipine 5 mg tablet 5 mg PO DAILY 01/07/22 04/25/22 History duloxetine 60 mg capsule,delayed 60 mg PO DAILY 01/07/22 04/25/22 History release tadalafil 10 mg tablet 10 mg PO DAILY PRN Erectile 01/07/22 04/25/22 History Dysfunction aspirin 81 mg tablet,delayed 81 mg PO DAILY 01/09/22 04/28/22 History release tramadol 50 mg tablet 50 mg PO BID PRN pain #60 tabs 04/10/22 04/25/22 Rx diclofenac sodium 3 % topical gel 1 applic topical BID PRN Pain 04/25/22 04/25/22 History Patient hx anesthesia problems: other (early awakening) Family hx anesthesia problems: none Results Review: All pre-operative results and documents have been reviewed as part of the pre-operative evaluation. [facility] Past Medical History Medical History Amputation of third toe, left, traumatic Lawnmower injury Anxiety BMI 34.0-34.9,adult Chronic depression Chronic pain of right knee Community acquired pneumonia (~12/30/21) COVID negative. Chest x-ray 01/01/2022 with bilateral patchy infiltrates right lower lobe and left upper lobe. CVA (cerebral vascular accident) Degenerative arthritis of knee, bilateral Dental abscess Erectile dysfunction Essential (primary) hypertension Gastro-esophageal reflux disease without esophagitis Laceration of multiple sites of scalp and neck Mixed hyperlipidemia Obesity (BMI 30.0-34.9) Obstructive sleep apnea failure on CPAP due to intolerance BRIAN on CPAP Osteoarthritis of left knee Peptic ulcer disease Seasonal allergic rhinitis Tear of medial meniscus of right knee Tobacco use disorder, continuous Surgical History Surgical History History of arthroscopic knee surgery Left Family History Family History Grandparent Acute myocardial infarction, Onset Age: 52 Family history of liver disease, Onset Age: 60 Family history of malignant neoplasm, Onset Age: 70 Father Hypertension Heart disease Cerebrovascular accident Mother Hypertension Social History Social History Social History: Mr. Mcqueen lives at home with his . He is independent in his daily activities. 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 His PCP is Dr. Islas. He designates his , Eugenia, as his surrogate decision maker and he would like to be a full code. Smoking packs per day: 1 Smoking cigarettes per day: 20.0 Years smoked: 20 Smoking pack-years: 20.00 Smoking status: Current every day smoker Tobacco type: cigarettes Second hand tobacco smoke exposure: Yes Additional smoking assessment comments: STATES TYRING TO QUIT - DOWN TO 1/2PK/DAY SINCE DECEMBER 2021 Alcohol intake: current Drinks per week: 4 Alcohol use details: Beer Substance
--- NOTE | 2022-04-28 10:03 | WPDHPUPDATE1 ---
History and Physical Update Update Date/Time: 04/28/22 10:03 History and Physical has been reviewed, including an updated exam of the patient. There are NO changes in the patient's condition. Risks, benefits, and alternatives have been discussed and questions answered. Patient agrees to proceed with procedure.
[2022-04-28] MEDS: ceFAZolin 2 GM/D5W 50 ML 2 GM/50 ML BAG IVPB (10:29)
[2022-04-28] MEDS: LIDOCAINE HCL 1% LOCAL INJ 20 ML VIAL INFILTRATE (11:09)
--- NOTE | 2022-04-28 11:48 | P.OP_ITS ---
Procedure Note - Detailed Date of Procedure 04/28/22 Pre-op Diagnosis right knee medial meniscal tear Post-op Diagnosis Other (Right knee medial meniscal tear with extensive synovitis) Procedure Performed Right knee arthroscopy, partial medial meniscectomy, extensive synovectomy Surgeon Enzo Thurman MD Anesthesia General Description of Procedure The patient was identified and proper site identified and he was taken to the operating room, transferred to the OR table placing him supine taking care to pad the torso and extremities. After general anesthetic induction and intubation, a nonsterile tourniquet was placed high on the right thigh but was not inflated. The right lower extremity was positioned, prepped and draped in usual sterile fashion. 10 cc of 1% lidocaine was injected into the subcutaneous tissue in the area of the portals at start of the procedure, and an additional 10 at the end. The portals were established and the arthroscopy was carried out. Articular meniscal cartilage in the lateral compartment showed some mild fraying. There is grade 2 changes extensively in the anterior compartment with some grade 3 changes noted in the femoral trochlea. Also grade 2 and three changes noted in the medial articular surfaces. There was tearing of the midbody the medial meniscus as well as a tear near the root. This was contoured back to stable rim with basket forceps and a shaver. There was also a very large medial plica which was resected. There is a large fold of synovium at the medial margin the medial femoral condyle which was quite inflamed. This was resected hemostasis carried out. Finally there was inflamed synovial tissue overlying the anterior horn of the medial meniscus which was debrided and then the again the ArthroCare Wand used for hemostasis. The knee was flushed with a copious amount of arthroscopic fluid and equipment was removed. Portals were c losed with three O nylon suture and a sterile dressing was applied. He tolerated the procedure well, was awakened, extubated and taken to recovery area in stable condition. There were no known intraoperative complications. Estimated blood loss was negligible; he received perioperative antibiotics. Estimated Blood Loss 20 Tourniquet Time 0 Drains No Packing No Pathology None sent Complications No immediate complications Condition Stable Disposition PACU
[2022-04-28] MEDS: fentaNYL CITRATE INJ (*CRX) 100 MCG/2 ML VIAL 25 MCG IV PUSH ×2 (11:55→11:58)
== END 2022-04-28 13:55 | disposition home or self-care (01) ==
PROVIDERS: PCP Family Medicine; Visit Provider Orthopaedic Surgery
PROC: (CPT 29870; principal; 2022-04-28 10:30)
DX: M23.331 Other meniscus derangements, other medial meniscus, right knee (principal); M65.861 Other synovitis and tenosynovitis, right lower leg; I10 Essential (primary) hypertension; G47.33 Obstructive sleep apnea (adult) (pediatric); E78.2 Mixed hyperlipidemia; F41.9 Anxiety disorder, unspecified; F32.A Depression, unspecified; Z86.73 Personal history of transient ischemic attack (TIA), and cerebral infarction without residual deficits; F17.210 Nicotine dependence, cigarettes, uncomplicated; E66.9 Obesity, unspecified; Z68.34 Body mass index [BMI] 34.0-34.9, adult; Z79.51 Long term (current) use of inhaled steroids; Z79.82 Long term (current) use of aspirin
CPT/HCPCS: 29881; 29876; A9270; J0690; J1100; J1885; J2250; J2405; J2704; J3010; J7120

== ENCOUNTER 2022-06-18 10:59 | Outpatient (RCR) | payer BC, SELFPAY ==
--- NOTE | 2022-01-01 10:59 | PCPTNOTE ---
Patient did not show up for scheduled initial evaluation this date.
== END 2022-06-18 10:59 | disposition home or self-care (01) ==
LOC: ANHPT 10:59
PROVIDERS: PCP Family Medicine; Visit Provider Orthopaedic Surgery
DX: M25.562 Pain in left knee (principal)
CPT/HCPCS: 99199

== ENCOUNTER 2022-10-03 06:29 | Observation (INO) | payer BC, SELFPAY ==
[2022-10-03] VITALS (15 sets, daily range): BP systolic 136–244; BP diastolic 67–103; PULSE 64–90; RESP 12–20; TEMP 36.5–37.3; O2SAT 95–100
--- NOTE | ~2022-10-03 | CT_ITS ---
CT of the Abdomen and Pelvis: Indication: Abdominal pain Technique: 2.5 mm axial scans were obtained through the abdomen and pelvis following intravenous adm inistration of 100 cc of Omnipaque 350. Dose reduction technique was used on this scan by utilizing a utomated exposure control and iterative reconstruction technique. The dose-length product (DLP) was 1 082.63 mGy-cm. Findings: Scans through the lung bases are unremarkable. The liver, spleen, pancreas, gallbladder, adrenals and left kidney are within normal limits. No lymp hadenopathy. There is a 5 mm stone is essentially at the right UVJ, with mild right hydroureteronephr osis. There is mildly delayed right nephrogram. Additional punctate nonobstructing right renal stone present. There are atherosclerotic calcifications of the aorta. No bowel obstruction or bowel wall thickening. There is no evidence to suggest acute appendicitis. Images through the pelvis were performed. Urinary bladder otherwise unremarkable. Prostate gland and seminal vesicles are unremarkable. No ascites. Impression: 5 mm right UVJ stone, with mild right hydroureteronephrosis and mildly delayed right nephrogram. Additional punctate nonobstructing right renal stone. Reviewed, dictated and finalized at [facility]. Impression: 5 mm right UVJ stone, with mild right hydroureteronephrosis and mildly delayed right nephrogram. Additional punctate nonobstructing right renal stone.
--- NOTE | ~2022-10-03 | XR_ITS ---
EXAMINATION: XR retrograde pyelo w/stent RT INDICATION: Right ureterovesicular junction stone TECHNIQUE: Three intraoperative fluoroscopic images are submitted for review. Total fluoroscopic time is 63.2 seconds. COMPARISON: CT from today FINDINGS: A right internal ureteral stent is placed in expected position. There is mild right hydrone phrosis. Please refer to procedure note for full details. IMPRESSION: 1. Right internal ureteral stent in expected position. Reviewed, dictated and finalized at location F.
--- NOTE | ~2022-10-03 | XR_ITS ---
Supine and upright views of the abdomen Clinical history: Abdominal pain COMPARISON: 10/05/2022 Findings: Bowel gas pattern is nonspecific. No evidence for obstruction or free air. Right ureteral s tent in place. No abnormal mass lesion or calcification is seen. Osseous structures are intact. Impression: Right ureteral stent present. Nonspecific bowel gas pattern. Reviewed, dictated and finalized at [facility]. Impression: Right ureteral stent present. Nonspecific bowel gas pattern.
--- NOTE | ~2022-10-03 | US_ITS ---
EXAMINATION: US renal BI DATE: 10/04/2022 08:34 INDICATION: Ureteral stone with hydronephrosis TECHNIQUE: Multiple grayscale and Doppler ultrasound images of the kidneys were obtained. COMPARISON: None. FINDINGS: The right kidney measures 12.2 x 6.2 x 6.2 cm and contains a 1.5 cm cyst. The left kidney m easures 11.2 x 6.2 x 7.6 cm. The kidneys demonstrate normal parenchymal echogenicity. There is a part ially imaged right internal ureteral stent. There is no hydronephrosis. The bladder is normal. IMPRESSION: 1. Unremarkable kidneys without hydronephrosis. Reviewed, dictated and finalized at location A.
--- NOTE | ~2022-10-03 | XR_ITS ---
EXAMINATION: XR abdomen/kub 1V INDICATION: Constipation, bloating TECHNIQUE: Supine views of the abdomen were obtained on 2 radiographs. COMPARISON: None FINDINGS: The bowel gas pattern is nonspecific. There is a moderate volume of colonic stool. No dilat ed loops of bowel are evident. A right internal ureteral stent is in expected position. There is mode rate osteoarthritis of the right hip. A phlebolith is noted in the right pelvis. IMPRESSION: 1. Moderate volume of colonic stool. Reviewed, dictated and finalized at location A.
[2022-10-03 07:12] LABS: Basophils Absolute Auto 0.1 K/mm3 (0.0-0.1); Basophils Percent Auto 0.8 % (0.2-1.2); Eosinophils Absolute Auto 0.1 K/mm3 (0-0.3); Eosinophils Percent Auto 0.3 % (0-4.4); Hematocrit 43.8 % (42.0-52.0); Hemoglobin 14.6 g/dL (14.0-18.0); Immature Granulocyte Absolute 0.05 K/mm3 (0.00-0.031); Immature Granulocyte Percent A 0.3 % (0-0.5); Lymphocytes Absolute Auto 1.27 K/mm3 (0.9-3.2); Lymphocytes Percent Auto 8.7 % (18.3-44.2); Mean Corpuscular HGB Conc 33.3 g/dl (32-36); Mean Corpuscular Volume 90.1 fl (80-100); Mean Platelet Volume 10.5 fl (7.4-10.4); Monocytes Absolute Auto 1.1 K/mm3 (0.1-0.6); Monocytes Percent Auto 7.7 % (2.6-8.5); Neutrophils Percent Auto 82.2 % (45.5-73.1); Platelet Count Result 251 k/mm3 (150-375); Red Blood Count 4.86 M/mm3 (4.6-6.20); Red Cell Distribution Width 14.1 % (11.5-14.5); White Blood Count 14.6 K/mm3 (4.5-10.0)
[2022-10-03 07:24] LABS: Alanine Aminotransferase 23 U/L (6-50); Albumin Level 4.8 g/dL (3.5-5.1); Alkaline Phosphatase 123 U/L (38-126); Anion Gap 10 mmol/L (8-16); Aspartate Amino Transferase 27 U/L (17-59); Bilirubin,Total 0.6 mg/dL (0.2-1.3); Blood Urea Nitrogen 17 mg/dL (9-20); Calcium 9.8 mg/dL (8.4-10.2); Carbon Dioxide 26 mmol/L (22-30); Chloride 101 mmol/L (98-107); Estimated CRCL calculation 62 ml/min; Estimated Glomerular Filt Rate 52; Glucose 128 mg/dL (65-110); Lipase 62 U/L (23-300); Potassium 3.6 mmol/L (3.4-5.0); Sodium 137 mmol/L (137-145)
--- NOTE | 2022-10-03 07:36 | ED.ABDPAIN ---
HPI - Abdominal Pain General Chief Complaint: Abdominal Pain Stated Complaint: ABD PAIN/CONSTIPATION Time Seen by Provider: 10/03/22 07:35 Source: patient Mode of arrival: ambulatory Limitations: no limitations History of Present Illness HPI narrative: Patient presents with intermittent right abdominal pain, sharp, worse with movement, nothing make it better started 3 days ago got worse at this morning associated with nausea. He denies any fever or recent physical activity or trauma. History of hypertension and hyperlipidemia. He smokes cigarette, drinks occasionally, no drugs patient drove himself to the emergency room. Related Data Home Medications Medication Instructions Recorded Confirmed cyanocobalamin (vitamin B-12) 1,000 mcg PO DAILY 05/12/19 10/03/22 1,000 mcg tablet (Vitamin B-12) ascorbate calcium (vitamin C) 500 500 mg PO DAILY 07/22/22 10/03/22 mg tablet [id number] 333 mg-133 1 tablet PO DAILY 07/22/22 10/03/22 mg-5 mg tablet meloxicam 15 mg tablet 15 mg PO DAILY 07/22/22 10/03/22 multivitamin (Daily Multi-Vitamin 1 tablet PO DAILY 07/22/22 10/03/22 tablet) tramadol 50 mg tablet 50 mg PO Q6H PRN Pain 07/22/22 10/03/22 Allergies Allergy/AdvReac Type Severity Reaction Status Date / Time No Known Allergies Allergy Verified 10/03/22 13:59 Review of Systems Review of Systems: All systems reviewed & are unremarkable except as noted in HPI and below PMFSH Past Medical History Medical History (Updated 10/03/22 @ 21:53 by Cherrie Gong PA-C) Abnormal fasting glucose (08/01/22) Glucose 103 on 08/01/2022. Amputation of third toe, left, traumatic Lawnmower injury Anxiety BMI 34.0-34.9,adult Cerebrovascular accident Attributed to hypertension. No residual deficits. Chronic depression Community acquired pneumonia (12/30/21) COVID negative. Chest x-ray 01/01/2022 with bilateral patchy infiltrates right lower lobe and left upper lobe. Degenerative arthritis of knee, bilateral Dental abscess Encounter for wellness examination in adult Erectile dysfunction Essential (primary) hypertension Gastro-esophageal reflux disease without esophagitis Laceration of multiple sites of scalp and neck Mixed hyperlipidemia Total cholesterol 184, triglycerides 92, HDL 46, LDL 118 on 08/01/2022. Obstructive sleep apnea Intolerant to CPAP. Osteoarthritis of left knee Peptic ulcer disease Seasonal allergic rhinitis Tear of medial meniscus of right knee Status post partial medial meniscectomy with synovectomy April 28, [address] Thurman. Tobacco use disorder, continuous Surgical History Surgical History (Updated 10/03/22 @ 18:20 by Cherrie Gong PA-C) History of arthroscopy of left knee Status post medial meniscectomy of right knee (~04/28/22) Partial medial meniscectomy with synovectomy. Family History Family History Grandparent Acute myocardial infarction, Onset Age: 52 Family history of liver disease, Onset Age: 60 Family history of malignant neoplasm, Onset Age: 70 Father Hypertension Heart disease Cerebrovascular accident Mother Hypertension Social History Social History (Updated 10/03/22 @ 18:21 by Cherrie Gong PA-C) Social History: Mr. Mcqueen lives at home with his . He is independent in his daily activities. 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 His PCP is Dr. Islas. He designates his , Eugenia, as his surrogate decision maker and he would like to be a full code. Smoking packs per day: 0.25 Smoking cigarettes per day: 5.0 Years smoked: 20 Smoking pack-years: 5.00 Smoking status: Current every day smoker Tobacco type: cigarettes ( 5 cigarettes daily) Second hand tobacco smoke exposure: Yes Alcohol intake: current Drinks per week: 4 Alcohol use details: Beer. Substance use: never Substance use type: does not use Lack of Transportati
[2022-10-03 07:43] LABS: Appearance Urine Clear (Clear); Bacteria Urine None Seen /hpf; Bilirubin Urine Negative (Negative); Blood Urine Negative (Negative); Color Urine Yellow (Yellow); Glucose Urine UA Negative (Negative); Ketones Urine Trace mg/dL (Negative); Leukocyte Esterase Ur Negative LEU/UL (Negative); Nitrate Urine Negative (Negative); Non Pathogenic Casts 0-2; Protein Urine 1+ mg/dL (Negative); RBC Urine 0-2 /hpf (0-2); Specific Grav Ur 1.018 (1.001-1.035); Squamous Epithelial Cell Urine None seen /hpf (Few); Urobilinogen Urine 0.2 mg/dL (<2.0); WBC Urine 0-5 /hpf; pH Urine 5.5 (5.0-9.0)
[2022-10-03 08:13] LABS: Add Urine Microscopic? YES
[2022-10-03] MEDS: HYDROmorphone HCL INJ (*CRX) 1 MG/ML SYR 0.5 MG IV PUSH ×4 (09:07→16:52)
[2022-10-03] MEDS: ONDANSETRON INJ 4 MG/2 ML VIAL IV PUSH ×3 (09:07→16:43)
[2022-10-03] MEDS: SODIUM CHLORIDE 0.9% IV 1,000 ML 999 ML IV CONT (09:08)
[2022-10-03] MEDS: LACTATED RINGERS 1,000 ML 999 ML IV CONT (09:10)
[2022-10-03] MEDS: LABETALOL HCL INJ 100 MG/20 ML VIAL 20 MG IV PUSH ×2 (09:39→09:51)
[2022-10-03] MEDS: TAMSULOSIN HCL 0.4 MG CAPSULE PO (09:51)
--- NOTE | 2022-10-03 13:29 | SUR.PREOP ---
0562- Call to Dr. Sandoval to obtain orders for pain medication. Per Dr. Sandoval can place orders for dilaudid IVP 0.5MG once and repeat dose once if needed.
[2022-10-03] MEDS: LACTATED RINGERS 1,000 ML 30 ML IV CONT ×3 (13:30→18:08)
--- NOTE | 2022-10-03 15:43 | WPDURCON ---
Assessment and Plan Assessment and plan (1) Kidney stone: Code(s): N20.0 - Calculus of kidney Status: Acute (2) GIRISH (acute kidney injury): Code(s): N17.9 - Acute kidney failure, unspecified Status: Acute (3) Ureteral stone with hydronephrosis: Code(s): N13.2 - Hydronephrosis with renal and ureteral calculous obstruction Status: Acute Assessment and Plan: Cystoscopy, right ureteroscopy with possible stone extraction, right stent placement, right retrograde pyelogram, possible holmium laser. Obtain consent, keep NPO, plan to go to the OR with Dr. Grider this afternoon. Patient will be admitted to the medicine service for monitoring of his GIRISH. Urology Consult Note HPI Date Seen: 10/03/22 Time Seen: 12:30 Requesting Physician: Sarba Grider MD Primary Care Provider: Noam Islas MD Consult Narrative Reason for consult: ureteral stone Narrative: Avi Mcqueen is a 57 year old male who presented to the ER today for right flank pain that radiates to the right lower quadrant that started Thursday and has worsened. He also c/o nausea, vomiting, frequency and urgency. He has not had stones previously and missed work yesterday d/t the pain. He is currently afebrile, WBC is 14.6, creatinine is 1.40 (baseline is 0.79) UA is negative for infection. CT scan shows 5mm right UVJ stone with mild right hydronephrosis and right renal stone. Review of Systems Cardiovascular: Cardiovascular: Denies chest pain Respiratory: Respiratory: Reports no additional respiratory complaints Gastrointestinal: Gastrointestinal: Reports abdominal pain, Reports nausea and Reports vomiting Genitourinary: Genitourinary: Reports hematuria, Denies dysuria, Reports flank pain, Reports urinary frequency, Denies urinary hesitancy and Reports urinary urgency [facility] Past Medical History Medical History Abnormal fasting glucose (08/01/22) Glucose 103 on 08/01/2022. Amputation of third toe, left, traumatic Lawnmower injury Anxiety BMI 34.0-34.9,adult Chronic depression Chronic pain of right knee Community acquired pneumonia (~12/30/21) COVID negative. Chest x-ray 01/01/2022 with bilateral patchy infiltrates right lower lobe and left upper lobe. CVA (cerebral vascular accident) Degenerative arthritis of knee, bilateral Dental abscess Encounter for wellness examination in adult Erectile dysfunction Essential (primary) hypertension Gastro-esophageal reflux disease without esophagitis Laceration of multiple sites of scalp and neck Mixed hyperlipidemia Total cholesterol 184, triglycerides 92, HDL 46, LDL 118 on 08/01/2022. Obesity (BMI 30.0-34.9) Obstructive sleep apnea failure on CPAP due to intolerance BRIAN on CPAP Osteoarthritis of left knee Peptic ulcer disease Seasonal allergic rhinitis Tobacco use disorder, continuous Surgical History Surgical History History of arthroscopic knee surgery Left Tear of medial meniscus of right knee Partial medial meniscectomy with synovectomy April 28, 2022 Family History Family History Grandparent Acute myocardial infarction, Onset Age: 52 Family history of liver disease, Onset Age: 60 Family history of malignant neoplasm, Onset Age: 70 Father Hypertension Heart disease Cerebrovascular accident Mother Hypertension Social History Social History Social History: Mr. Mcqueen lives at home with his . He is independent in his daily activities. 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 His PCP is Dr. Islas. He designates his , Eugenia, as his surrogate decision maker and he would like to be a full code. Smoking packs per day: 0.25 Smoking cigarettes per day: 5.0 Years smoked: 20 Smoking pack-years: 5.00 S
--- NOTE | 2022-10-03 16:14 | WPDANESEPPF ---
Anes - Initial Pre Proc Eval Procedure: Operation Date: 10/03/22 15:30 Proposed Procedures p Cystoscopy, Right Ureteroscopy, Possible Right Retrograde Pyelogram, Possible Right Stone Extraction, Possible Right Stent Placement, Possible Holmium Laser Lithotripsy - Sabra Grider MD Date/Time: 10/03/22 16:14 Surgeon: Sabra Grider MD Pre Op Diagnosis: ABD PAIN/CONSTIPATION Patient Data Age: 57 Gender: M Height: 1.75 m Weight: 100 kg Last Vital Signs Temp 37.3 C 10/03/22 13:15 Pulse 72 10/03/22 13:43 Resp 18 10/03/22 13:15 BP 152/87 H 10/03/22 13:15 Pulse Ox 98 10/03/22 13:43 O2 Del Method Room Air 10/03/22 13:43 Allergies Allergy/AdvReac Type Severity Reaction Status Date / Time No Known Allergies Allergy Verified 10/03/22 13:59 Home Medications Medication Instructions Recorded Confirmed Type cyanocobalamin (vitamin B-12) 1,000 mcg PO DAILY 05/12/19 07/22/22 History 1,000 mcg tablet (Vitamin B-12) amlodipine 5 mg tablet 5 mg PO . q.a.m. #90 tabs 07/22/22 07/22/22 Rx ascorbate calcium (vitamin C) 500 500 mg PO DAILY 07/22/22 07/22/22 History mg tablet bupropion HCl 150 mg 24 hr tablet, 150 mg PO QAM #30 tabs 07/22/22 07/22/22 Rx extended release (Wellbutrin XL) czowlik-wxwusdbnz-fefy 333 mg-133 tablet PO 07/22/22 07/22/22 History mg-5 mg tablet irbesartan 150 mg tablet 150 mg PO . q.a.m. #30 tabs 07/22/22 07/22/22 Rx meloxicam 15 mg tablet 15 mg PO DAILY 07/22/22 07/22/22 History multivitamin (Daily Multi-Vitamin 1 tablet PO DAILY 07/22/22 07/22/22 History tablet) tramadol 50 mg tablet 50 mg PO Q6H PRN Pain 07/22/22 07/22/22 History duloxetine 60 mg capsule,delayed 60 mg PO DAILY #90 caps 08/19/22 Rx release tadalafil 20 mg tablet (Cialis) 20 mg PO DAILY PRN sexual activity 08/25/22 Rx #90 tabs Laboratory Tests 10/03/22 10/03/22 10/03/22 06:47 06:47 07:29 WBC 14.6 K/mm3 H K/mm3 (4.5-10.0) RBC 4.86 M/mm3 M/mm3 (4.6-6.20) Hgb 14.6 g/dL g/dL (14.0-18.0) Hct 43.8 % % (42.0-52.0) MCV 90.1 fl fl (80-100) MCH 30.0 pg pg (26-34) MCHC 33.3 g/dl g/dl (32-36) RDW 14.1 % % (11.5-14.5) Plt Count 251 k/mm3 k/mm3 (150-375) MPV 10.5 fl H fl (7.4-10.4) Immature Gran % (Auto) 0.3 % % (0-0.5) Neut % (Auto) 82.2 % H % (45.5-73.1) Lymph % (Auto) 8.7 % L % (18.3-44.2) [place] % (Auto) 7.7 % % (2.6-8.5) Eos % (Auto) 0.3 % % (0-4.4) Baso % (Auto) 0.8 % % (0.2-1.2) Lymph # (Auto) 1.27 K/mm3 K/mm3 (0.9-3.2) [place] # (Auto) 1.1 K/mm3 H K/mm3 (0.1-0.6) Eos # (Auto) 0.1 K/mm3 K/mm3 (0-0.3) Baso # (Auto) 0.1 K/mm3 K/mm3 (0.0-0.1) Abs Immat Gran (auto) 0.05 K/mm3 H K/mm3 (0.00-0.031) Absolute Neuts (auto) 12.0 K/mm3 H K/mm3 (1.3-6.7) Absolute Nucleated RBC 0.0 K/mm3 K/mm3 (0.0-0.012) Nucleated RBC % 0.0 % % (0.0-0.2) Sodium 137 mmol/L mmol/L (137-145) Potassium 3.6 mmol/L mmol/L (3.4-5.0) Chloride 101 mmol/L mmol/L (98-107) Carbon Dioxide 26 mmol/L mmol/L (22-30) Anion Gap 10 mmol/L mmol/L (8-16) BUN 17 mg/dL mg/dL (9-20) Creatinine 1.40 mg/dL H mg/dL (0.7-1.3) Estim Creat Clear Calc 62 ml/min ml/min Estimated GFR 52 L (59 - ) Glucose 128 mg/dL H mg/dL (65-110) Calcium 9.8 mg/dL mg/dL (8.4-10.2) Total Bilirubin 0.6 mg/dL mg/dL (0.2-1.3) AST 27 U/L U/L (17-59) ALT 23 U/L U/L (6-50) Alkaline Phosphatase 123 U/L U/L (38-126) Total Protein 8.0 g/dL g/dL (6.3-8.2) Albumin 4.8 g/dL g/dL (3.5-5.1) Lipase 62 U/L U/L (23-300) Urine Color Yellow (Yellow) Urine Appearance Bradford
--- NOTE | 2022-10-03 17:03 | WPDHPUPDATE1 ---
History and Physical Update Update Date/Time: 10/03/22 17:03 History and Physical has been reviewed, including an updated exam of the patient. There are NO changes in the patient's condition. Risks, benefits, and alternatives have been discussed and questions answered. Patient agrees to proceed with procedure.
[2022-10-03] MEDS: LIDOCAINE HCL 2% GEL UROJET 10 ML PKG MUCOUS MEM (17:25)
[2022-10-03] MEDS: ceFAZolin 2 GM/D5W 50 ML 2 GM/50 ML BAG IVPB (17:25)
--- NOTE | 2022-10-03 18:10 | PM.IMHP ---
H&P: HPI History of Present Illness Date/Time: 10/03/22 18:10 Chief Complaint: Abdominal pain. Narrative: This is a very pleasant 57-year-old male smoker with hypertension who presented to the emergency department via private vehicle from home for evaluation abdominal pain. Patient provides the following history. He developed right-sided flank pain sometime on Thursday which he describes as sharp and stabbing in nature. It has been intermittent since that time does occasionally radiate to the right low back and right lower quadrant. He has not noticed any significant aggravating or alleviating factors. He initially thought that he was constipated as he has not had a good bowel movement since Thursday which is quite unusual for him. This morning the pain seemed to be worse and he developed nausea which prompted him to come in for evaluation. CT scan showed a 5 mm right UVJ stone with mild right hydronephrosis and a right renal stone. He has no prior history of kidney stones. He has not noticed a decrease in urine output and he also denies dysuria, frequency, urgency, and hematuria. He has not had fever, chills, or sweats. He has had nausea as detailed above but no vomiting. He was taken to the OR by Dr. Hull and he is now status post cystoscopy with right ureteroscopy, stone extraction, retrograde pyelogram, and ureteral stent insertion. He is being admitted overnight for observation as labs showed evidence of an acute kidney injury. At the time my evaluation he is resting comfortably and has no pain or complaints. Review of Systems Review of Systems: Twelve systems were reviewed and are negative except for as per HPI. [facility] Past Medical History Medical History (Updated 10/03/22 @ 21:53 by Cherrie Gong PA-C) Abnormal fasting glucose (08/01/22) Glucose 103 on 08/01/2022. Amputation of third toe, left, traumatic Lawnmower injury Anxiety BMI 34.0-34.9,adult Cerebrovascular accident Attributed to hypertension. No residual deficits. Chronic depression Community acquired pneumonia (12/30/21) COVID negative. Chest x-ray 01/01/2022 with bilateral patchy infiltrates right lower lobe and left upper lobe. Degenerative arthritis of knee, bilateral Dental abscess Encounter for wellness examination in adult Erectile dysfunction Essential (primary) hypertension Gastro-esophageal reflux disease without esophagitis Laceration of multiple sites of scalp and neck Mixed hyperlipidemia Total cholesterol 184, triglycerides 92, HDL 46, LDL 118 on 08/01/2022. Obstructive sleep apnea Intolerant to CPAP. Osteoarthritis of left knee Peptic ulcer disease Seasonal allergic rhinitis Tear of medial meniscus of right knee Status post partial medial meniscectomy with synovectomy April 28, [address] Thurman. Tobacco use disorder, continuous Surgical History Surgical History (Updated 10/03/22 @ 18:20 by Cherrie Gong PA-C) History of arthroscopy of left knee Status post medial meniscectomy of right knee (~04/28/22) Partial medial meniscectomy with synovectomy. Family History Family History Grandparent Acute myocardial infarction, Onset Age: 52 Family history of liver disease, Onset Age: 60 Family history of malignant neoplasm, Onset Age: 70 Father Hypertension Heart disease Cerebrovascular accident Mother Hypertension Social History Social History (Updated 10/03/22 @ 18:21 by Cherrie Gong PA-C) Social History: Mr. Mcqueen lives at home with his . He is independent in his daily activities. 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 His PCP is Dr. Islas. He designates his , Eugenia, as his surrogate decision maker and he would like to be a full code. Smoking packs per day: 0.25 Smoking cigarettes per day: 5.0 Years smoked: 20 Smoking pack-years: 5.00 Smoking status: Current every day smoker Tobacco type: cigarett
--- NOTE | 2022-10-03 18:15 | P.OP_ITS ---
Procedure Note - Detailed Date of Procedure 10/03/22 Pre-op Diagnosis right UVJ Stone Post-op Diagnosis Same Procedure Performed Cystoscopy, right ureteroscopy, stone extraction, retrograde pyelogram, ureteral stent insertion Surgeon Sabra Grider MD Anesthesia General Findings Right distal ureteral stone removed Description of Procedure Informed consent is obtained. Patient was taken the operating room. He was given preoperative IV antibiotics. He was induced anesthesia. He was prepped and draped in dorsal fashion. A 22 F cystoscope was inserted through the urethra into the bladder. There was mild bilobar prostatic hyperplasia. The patient had a normal bladder with minimal trabeculation, no masses or tumors. The patient had bilateral orthotopic ureteral orifices. Intelligence Research Specialist film revealed contrast filling the distal ureter down to the level of the bladder with a filling defect in the distal ureter consistent with the known obstructing stone. We attempted to pass a Bentson wire which would not easily pass the stone, we then used a Glidewire and were able to manipulate past the level of stone. Then dilate with a 10 coaxial dilator. We then advanced a semi rigid ureteroscope in distal ureter. We identified the stone in the distal ureter and removed in one piece. The stone was sent to pathology. We then reinserted the ureteral scope and inspected the distal 3rd of the ureter, there was no residual stone seen. There was inflammation at the area of previous stone impaction. A retrograde pyelogram was then performed which revealed hydroureteronephrosis that was mild. There was no extravasation noted. Over a wire a 6 F variable length stent was placed with a curl in renal pelvis and a curl in the bladder. Scope was removed. Lidocaine was instilled. patient was then taken recovery room stable condition Pathology Yes Complications No immediate complications Condition Stable Disposition PACU
[2022-10-03] MEDS: HYDROcodone/acetaminophen (*CRX) 5-325 MG TABLET 1 TAB PO (19:53)
[2022-10-03] MEDS: LACTATED RINGERS 1,000 ML 100 ML IV CONT (19:54)
[2022-10-03] MEDS: ACETAMINOPHEN 325 MG TABLET 650 MG PO (21:02)
[2022-10-03] MEDS: ENALAPRIL MALEATE 10 MG TABLET PO (21:03)
[2022-10-04] VITALS (8 sets, daily range): BP systolic 137–183; BP diastolic 75–91; PULSE 67–85; RESP 16–20; TEMP 35.9–36.5; O2SAT 97–99; BMI 32.5
[2022-10-04] MEDS: HYDROcodone/acetaminophen (*CRX) 5-325 MG TABLET 1 TAB PO ×2 (01:58→20:57)
[2022-10-04] MEDS: traMADol HCL (*CRX) 50 MG TABLET PO (06:34)
[2022-10-04] MEDS: LACTATED RINGERS 1,000 ML 100 ML IV CONT ×2 (06:35→15:00)
[2022-10-04 06:57] LABS: Hematocrit 35.4 % (42.0-52.0); Hemoglobin 11.8 g/dL (14.0-18.0); Mean Corpuscular HGB Conc 33.3 g/dl (32-36); Mean Corpuscular Hemoglobin 29.9 pg (26-34); Mean Corpuscular Volume 89.8 fl (80-100); Mean Platelet Volume 10.3 fl (7.4-10.4); Platelet Count Result 219 k/mm3 (150-375); Red Blood Count 3.94 M/mm3 (4.6-6.20); Red Cell Distribution Width 14.1 % (11.5-14.5); White Blood Count 11.9 K/mm3 (4.5-10.0)
[2022-10-04 07:19] LABS: Anion Gap 4 mmol/L (8-16); Blood Urea Nitrogen 17 mg/dL (9-20); Calcium 8.6 mg/dL (8.4-10.2); Carbon Dioxide 28 mmol/L (22-30); Chloride 103 mmol/L (98-107); Estimated CRCL calculation 89 ml/min; Estimated Glomerular Filt Rate > 60; Glucose 119 mg/dL (65-110); Magnesium 2.2 mg/dL (1.6-2.3); Potassium 3.6 mmol/L (3.4-5.0); Sodium 135 mmol/L (137-145)
[2022-10-04] MEDS: amLODIPine BESYLATE 5 MG TABLET PO (08:37)
[2022-10-04] MEDS: buPROPion HCL XL (24 HR) 150 MG TABCR PO (08:37)
[2022-10-04] MEDS: MULTIVITAMINS THERAPEUTIC TAB (*BKC) 1 TABLET PO (08:37)
[2022-10-04] MEDS: CYANOCOBALAMIN 1,000 MCG TABLET 1000 MCG PO (08:38)
[2022-10-04] MEDS: ASCORBIC ACID 500 MG TABLET PO (08:38)
[2022-10-04] MEDS: IRBESARTAN 150 MG TABLET PO (08:38)
[2022-10-04] MEDS: DULoxetine HCL 60 MG CAPSULE.DR PO (08:38)
--- NOTE | 2022-10-04 10:34 | WPDANESPN ---
Anes - Prog Note Post-Op Date/Time: 10/04/22 10:34 Cardiovascular status: normal Respiratory status: normal Airway patency: baseline Mental status: baseline Post-Op hydration status: normal Vital Signs: Last Vital Signs Temp 35.9 C L 10/04/22 05:10 Pulse 67 10/04/22 07:55 Resp 16 10/04/22 07:55 BP 145/80 H 10/04/22 07:55 Pulse Ox 99 10/04/22 07:55 O2 Del Method Room Air 10/04/22 08:00 O2 Flow Rate 8 10/03/22 18:31 Pain Score (VAS): 07/01 I/O: Intake & Output 10/03/22 10/04/22 10/04/22 23:59 07:59 15:59 Intake Total 2550 2280 480 Balance 2550 2280 480 Laboratory Tests 10/04/22 06:29 10/04/22 06:29 10/04/22 10/04/22 06:29 06:29 WBC 11.9 H RBC 3.94 L Hgb 11.8 L Hct 35.4 L MCV 89.8 MCH 29.9 MCHC 33.3 RDW 14.1 Plt Count 219 MPV 10.3 Sodium 135 L Potassium 3.6 Chloride 103 Carbon Dioxide 28 Anion Gap 4 L BUN 17 Creatinine 1.00 Estim Creat Clear Calc 89 Estimated GFR > 60 Glucose 119 H Calcium 8.6 Magnesium 2.2 Post-procedural complaints: none Patient Feedback: Patient satisfied with anesthetic care.
--- NOTE | 2022-10-04 12:50 | WPDUROPN2 ---
Progress Note: A&P Assessment and Plan (1) Acute kidney injury: Code(s): N17.9 - Acute kidney failure, unspecified Status: Acute (2) Ureteral stone with hydronephrosis: Code(s): N13.2 - Hydronephrosis with renal and ureteral calculous obstruction Status: Acute Plan s/p right ureteroscopy stone extraaction and stent placement Creatinine improving Will add pyridium for the next 24 hours Anticipate going home tomorrow Subjective Subjective Date/Time Seen: 10/04/22 12:50 Patient complaining of urgency and bladder pain. Otherwise feeling better since stone removed Exam Narrative: NAD NCAT Breathing unlabored ABdomen soft nt nd MAEW Objective Data Vital Signs Vital Signs: Vital Signs - 24 hr 10/03/22 13:15 10/03/22 13:43 10/03/22 18:15 Temperature 37.3 C 36.5 C Pulse Rate 65 72 90 Respiratory Rate 18 17 Blood Pressure 152/87 H 157/77 H Pulse Oximetry 99 98 100 Oxygen Delivery Room Air Room Air Simple Face Mask Oxygen Flow Rate 8 10/03/22 18:31 10/03/22 18:45 10/03/22 19:00 Temperature Pulse Rate 76 87 78 Respiratory Rate 18 12 15 Blood Pressure 146/86 H 142/92 H Pulse Oximetry 100 95 97 Oxygen Delivery Simple Face Mask Room Air Room Air Oxygen Flow Rate 8 10/03/22 19:15 10/03/22 19:45 10/03/22 20:00 Temperature 37.0 C 36.8 C Pulse Rate 81 73 75 Respiratory Rate 20 18 16 Blood Pressure 141/90 H 160/83 H 172/82 H Pulse Oximetry 96 98 98 Oxygen Delivery Room Air Oxygen Flow Rate 10/03/22 20:30 10/03/22 21:30 10/04/22 01:30 Temperature 37.0 C 36.6 C 36.3 C L Pulse Rate 85 87 85 Respiratory Rate 16 20 16 Blood Pressure 149/82 H 137/67 164/75 H Pulse Oximetry 97 98 97 Oxygen Delivery Oxygen Flow Rate 10/04/22 03:00 10/04/22 05:10 10/04/22 07:55 Temperature 35.9 C L Pulse Rate 85 69 67 Respiratory Rate 16 16 16 Blood Pressure 157/79 H 145/80 H Pulse Oximetry 97 99 99 Oxygen Delivery Room Air Oxygen Flow Rate 10/04/22 08:00 Temperature Pulse Rate Respiratory Rate Blood Pressure Pulse Oximetry Oxygen Delivery Room Air Oxygen Flow Rate Intake/Output Intake/Output: Intake & Output 10/01/22 10/02/22 10/03/22 10/04/22 23:59 23:59 23:59 23:59 Intake Total 4550 3060 Balance 4550 3060 Meds/Results Medications: Active Medications Generic Name Dose Route Start Last Admin Trade Name Freq PRN Reason Stop Dose Admin Acetaminophen 650 mg 10/03/22 18:29 10/03/22 21:02 Acetaminophen 325 Mg Tablet PO 650 mg Q4H PRN Administration Mild Pain (1-3) or Fever Hydrocodone Bitart/Acetaminophen 1 tab 10/03/22 18:29 10/04/22 01:58 Hydrocodone/Acetaminophen (*Crx) 5-325 Mg Tablet PO 1 tab Q4H PRN Administration Pain Rated 7-10 Amlodipine Besylate 5 mg 10/04/22 09:00 10/04/22 08:37 Amlodipine Besylate 5 Mg Tablet PO 5 mg QAM EVER Administration Ascorbic Acid 500 mg 10/04/22 09:00 10/04/22 08:38 Ascorbic Acid 500 Mg Tablet PO 500 mg DAILY EVER Administration Bupropion HCl 150 mg 10/04/22 09:00 10/04/22 08:37 Bupropion Hcl Xl (24 Hr) 150 Mg Tabcr PO 150 mg QAM EVER Administration Cyanocobalamin 1,000 mcg 10/04/22 09:00 10/04/22 08:38 Cyanocobalamin 1,000 Mcg Tablet PO 1,000 mcg DAILY EVER Administration Duloxetine HCl 60 mg 10/04/22 09:00 10/04/22 08:38 Duloxetine Hcl 60 Mg Capsule.Dr PO 60 mg DAILY EVER Administration Lactated Ringer's 1,000 mls @ 100 mls/hr 10/03/22 18:30 10/04/22 08:54 Lr - Lactated Ringers Iv IV CONT 100 mls/hr .Q10H EVER Infusion Irbesartan 150 mg 10/04/22 09:00 10/04/22 08:38 Irbesartan 150 Mg Tablet PO 150 mg QAM EVER Administration Multivitamins Therapeutic 1 tablet 10/04/22 09:00 10/04/22 08:37 Multivitamins Therapeutic Tab (*Bkc) PO 1 tablet DAILY EVER Administration Tramadol HCl 50 mg 10/03/22 22:56 10/04/22 06:34 Tramadol Hcl (*Crx) 50 Mg Tablet PO 50 mg Q
--- NOTE | 2022-10-04 14:39 | PM.DS ---
DS: Admitting Diagnosis Discharge Date 10/06/2022 Admitting Diagnosis Abdominal pain DS: Discharge Diagnosis Discharge Diagnosis (1) Ureteral stone with hydronephrosis: Onset Date: ~10/03/22 Code(s): N13.2 - Hydronephrosis with renal and ureteral calculous obstruction Status: Acute Assessment and Plan: Status post cystoscopy with right ureteroscopy, stone extraction, retrograde pyelogram, and ureteral stent placement. He is to follow-up with Dr. Hull in the office per his instructions. Analgesics available as needed. 09/04/2022 interval history: patient presented with right flank pain and CT of abdomen showed 5 mm in right UVJ was seen by urologist and had cystoscopy and stent was placed, patient was doing well clinically, however he was complaints pain along right flank and was seen by his urologist and added prydium, today patient flank pain is better but he complaints of constipation, bloating and passing minimal gas, normally patient has 3 BM in a day and he has not had any since 5 days, KUB showed, clonic stool, no obstruction, will give Miralax, and suppository, also patient BP is elevated most likely due to pain and stress, will monitor overnight and plan tomorrow. (2) Hypertension: Code(s): I10 - Essential (primary) hypertension Status: Inactive Assessment and Plan: Blood pressures were quite elevated on arrival to the emergency department, likely due to pain. They have since improved. Continue antihypertensives and monitor closely. (3) Acute kidney injury: Code(s): N17.9 - Acute kidney failure, unspecified Status: Inactive Assessment and Plan: Creatinine is nearly 2 times that of what he typically runs. He did have the right UVJ stone though there was only mild associated hydronephrosis. He denies significant NSAID use. He will be cautiously hydrated overnight and nephrotoxic agents will be avoided. Renal ultrasound has been ordered for a.m. to ensure the hydronephrosis is improving. Monitor strict I/O. (4) Tobacco use disorder, continuous: Code(s): F17.209 - Nicotine dependence, unspecified, with unspecified nicotine-induced disorders Status: Acute Assessment and Plan: Smoking cessation is encouraged and was discussed. He declines the need for nicotine patch. DS: Summary Hospital Course Reason for hospitalization: Abdominal pain. Narrative: This is a very pleasant 57-year-old male smoker with hypertension who presented to the emergency department via private vehicle from home for evaluation abdominal pain. Patient provides the following history. He developed right-sided flank pain sometime on Thursday which he describes as sharp and stabbing in nature. It has been intermittent since that time does occasionally radiate to the right low back and right lower quadrant. He has not noticed any significant aggravating or alleviating factors. He initially thought that he was constipated as he has not had a good bowel movement since Thursday which is quite unusual for him. This morning the pain seemed to be worse and he developed nausea which prompted him to come in for evaluation. CT scan showed a 5 mm right UVJ stone with mild right hydronephrosis and a right renal stone. He has no prior history of kidney stones.? He has not noticed a decrease in urine output and he also denies dysuria, frequency, urgency, and hematuria. He has not had fever, chills, or sweats. He has had nausea as detailed above but no vomiting. He was taken to the OR by Dr. Hull and he is now status post cystoscopy with right ureteroscopy, stone extraction, retrograde pyelogram, and ureteral stent insertion. He is being admitted overnight for observation as labs showed evidence of an acute kidney injury. At the time my evaluation he is resting comfortably and has no pain or complaints. Hospital Course: Status post cystoscopy with right ureteroscopy, stone extraction, retrograde pyelo
[2022-10-04] MEDS: PHENAZOPYRIDINE HCL 100 MG TABLET PO ×2 (14:57→23:28)
[2022-10-04] MEDS: polyethylene glycoL 3350 17 GM POWD.PACK PO (20:57)
[2022-10-04] MEDS: hydrALAZINE HCL 20 MG/ML VIAL 10 MG IV PUSH (21:32)
[2022-10-04] MEDS: METOPROLOL TARTRATE INJ 5 MG/5 ML VIAL IV PUSH ×2 (22:17→23:27)
[2022-10-05] VITALS (12 sets, daily range): BP systolic 156–176; BP diastolic 84–98; PULSE 63–117; RESP 16–20; TEMP 36.4–36.7; O2SAT 97–98
[2022-10-05] MEDS: LACTATED RINGERS 1,000 ML 100 ML IV CONT ×3 (01:22→11:48)
[2022-10-05] MEDS: HYDROcodone/acetaminophen (*CRX) 5-325 MG TABLET 1 TAB PO ×2 (06:39→20:47)
[2022-10-05] MEDS: hydrALAZINE HCL 20 MG/ML VIAL 10 MG IV PUSH ×2 (06:39→17:53)
[2022-10-05] MEDS: buPROPion HCL XL (24 HR) 150 MG TABCR PO (08:21)
[2022-10-05 08:29] LABS: Hematocrit 40.7 % (42.0-52.0); Hemoglobin 13.4 g/dL (14.0-18.0); Mean Corpuscular HGB Conc 32.9 g/dl (32-36); Mean Corpuscular Hemoglobin 29.9 pg (26-34); Mean Corpuscular Volume 90.8 fl (80-100); Mean Platelet Volume 10.4 fl (7.4-10.4); Platelet Count Result 249 k/mm3 (150-375); Red Blood Count 4.48 M/mm3 (4.6-6.20); Red Cell Distribution Width 14.1 % (11.5-14.5); White Blood Count 9.1 K/mm3 (4.5-10.0)
[2022-10-05] MEDS: CYANOCOBALAMIN 1,000 MCG TABLET 1000 MCG PO (08:29)
[2022-10-05] MEDS: IRBESARTAN 150 MG TABLET PO ×2 (08:29→20:49)
[2022-10-05] MEDS: MULTIVITAMINS THERAPEUTIC TAB (*BKC) 1 TABLET PO (08:29)
[2022-10-05] MEDS: amLODIPine BESYLATE 5 MG TABLET PO ×2 (08:29→20:48)
[2022-10-05] MEDS: DULoxetine HCL 60 MG CAPSULE.DR PO (08:29)
[2022-10-05] MEDS: polyethylene glycoL 3350 17 GM POWD.PACK PO ×2 (08:29→20:47)
[2022-10-05] MEDS: ASCORBIC ACID 500 MG TABLET PO (08:29)
[2022-10-05 08:44] LABS: Anion Gap 9 mmol/L (8-16); Blood Urea Nitrogen 14 mg/dL (9-20); Calcium 9.3 mg/dL (8.4-10.2); Carbon Dioxide 26 mmol/L (22-30); Chloride 104 mmol/L (98-107); Estimated CRCL calculation 126 ml/min; Estimated Glomerular Filt Rate > 60; Glucose 102 mg/dL (65-110); Potassium 3.6 mmol/L (3.4-5.0); Sodium 139 mmol/L (137-145)
[2022-10-05] MEDS: BISACODYL 10 MG SUPPOSITORY RECTAL (09:59)
--- NOTE | 2022-10-05 10:41 | PM.IMPN ---
Progress Note: A&P Assessment and Plan (1) Ureteral stone with hydronephrosis: Code(s): N13.2 - Hydronephrosis with renal and ureteral calculous obstruction Status: Acute Assessment and Plan: Status post cystoscopy with right ureteroscopy, stone extraction, retrograde pyelogram, and ureteral stent placement. He is to follow-up with Dr. Hull in the office per his instructions. Analgesics available as needed. 09/03/2022 interval history: patient presented with right flank pain and CT of abdomen showed 5 mm in right UVJ was seen by urologist and had cystoscopy and stent was placed, patient was doing well clinically, however he was complaints pain along right flank and was seen by his urologist and added prydium, will monitor overnight and plan tomorrow. (2) Hypertension: Code(s): I10 - Essential (primary) hypertension Status: Acute Assessment and Plan: Blood pressures were quite elevated on arrival to the emergency department, likely due to pain. They have since improved. Continue antihypertensives and monitor closely. (3) Acute kidney injury: Code(s): N17.9 - Acute kidney failure, unspecified Status: Acute Assessment and Plan: Creatinine is nearly 2 times that of what he typically runs. He did have the right UVJ stone though there was only mild associated hydronephrosis. He denies significant NSAID use. He will be cautiously hydrated overnight and nephrotoxic agents will be avoided. Renal ultrasound has been ordered for a.m. to ensure the hydronephrosis is improving. Monitor strict I/O. (4) Tobacco use disorder, continuous: Code(s): F17.209 - Nicotine dependence, unspecified, with unspecified nicotine-induced disorders Status: Acute Assessment and Plan: Smoking cessation is encouraged and was discussed. He declines the need for nicotine patch. Subjective Date/time seen: 10/04/22 10:41 Abdominal pain. Narrative: This is a very pleasant 57-year-old male smoker with hypertension who presented to the emergency department via private vehicle from home for evaluation abdominal pain. Patient provides the following history. He developed right-sided flank pain sometime on Thursday which he describes as sharp and stabbing in nature. It has been intermittent since that time does occasionally radiate to the right low back and right lower quadrant. He has not noticed any significant aggravating or alleviating factors. He initially thought that he was constipated as he has not had a good bowel movement since Thursday which is quite unusual for him. This morning the pain seemed to be worse and he developed nausea which prompted him to come in for evaluation. CT scan showed a 5 mm right UVJ stone with mild right hydronephrosis and a right renal stone. He has no prior history of kidney stones.? He has not noticed a decrease in urine output and he also denies dysuria, frequency, urgency, and hematuria. He has not had fever, chills, or sweats. He has had nausea as detailed above but no vomiting. He was taken to the OR by Dr. Hull and he is now status post cystoscopy with right ureteroscopy, stone extraction, retrograde pyelogram, and ureteral stent insertion. He is being admitted overnight for observation as labs showed evidence of an acute kidney injury. At the time my evaluation he is resting comfortably and has no pain or complaints. 09/03/2022 interval history: patient presented with right flank pain and CT of abdomen showed 5 mm in right UVJ was seen by urologist and had cystoscopy and stent was placed, patient was doing well clinically, however he was complaints pain along right flank and was seen by his urologist and added prydium, will monitor overnight and plan tomorrow. Review of Systems Review of Systems: Twelve systems were reviewed and are negative except for as per HPI. Exam Narrative: Morbidly obese Patient is comfortable, NAD HEENT: eyes are clear and n
--- NOTE | 2022-10-05 11:27 | WPDUROPN2 ---
Progress Note: A&P Assessment and Plan (1) Acute kidney injury: Code(s): N17.9 - Acute kidney failure, unspecified Status: Acute Assessment and Plan: Creatinine appears to have returned to baseline (2) Ureteral stone with hydronephrosis: Code(s): N13.2 - Hydronephrosis with renal and ureteral calculous obstruction Status: Acute Plan May discharge home today Patient instructed to purchase AZO to take prn Office will call to arrange cysto stent removal with Dr Grider in a week Subjective Subjective Date/Time Seen: 10/05/22 11:27 No complaints. Pyridium help with the dysuria Exam Narrative: NAD NCAT Breathing unlabored Abdomen soft nt nd MAEW Objective Data Vital Signs Vital Signs: Vital Signs - 24 hr 10/04/22 14:05 10/04/22 16:45 10/04/22 21:45 Temperature 36.2 C L 36.1 C L 36.5 C Pulse Rate 71 71 83 Respiratory Rate 16 18 20 Blood Pressure 137/83 158/87 H 183/91 H Pulse Oximetry 98 99 98 Oxygen Delivery 10/05/22 00:07 10/05/22 00:13 10/04/22 20:00 Temperature 36.4 C Pulse Rate 72 72 Respiratory Rate 20 20 Blood Pressure 156/84 H Pulse Oximetry 97 97 Oxygen Delivery Room Air 10/05/22 07:35 10/05/22 08:25 Temperature 36.6 C Pulse Rate 70 Respiratory Rate 17 Blood Pressure 160/87 H Pulse Oximetry 97 Oxygen Delivery Room Air Intake/Output Intake/Output: Intake & Output 10/02/22 10/03/22 10/04/22 10/05/22 23:59 23:59 23:59 23:59 Intake Total 4550 5600 3130 Balance 4550 5600 3130 Meds/Results Medications: Active Medications Generic Name Dose Route Start Last Admin Trade Name Freq PRN Reason Stop Dose Admin Acetaminophen 650 mg 10/03/22 18:29 10/03/22 21:02 Acetaminophen 325 Mg Tablet PO 650 mg Q4H PRN Administration Mild Pain (1-3) or Fever Hydrocodone Bitart/Acetaminophen 1 tab 10/03/22 18:29 10/05/22 06:39 Hydrocodone/Acetaminophen (*Crx) 5-325 Mg Tablet PO 1 tab Q4H PRN Administration Pain Rated 7-10 Amlodipine Besylate 5 mg 10/05/22 21:00 Amlodipine Besylate 5 Mg Tablet PO Q12HR [facility] Ascorbic Acid 500 mg 10/04/22 09:00 10/05/22 08:29 Ascorbic Acid 500 Mg Tablet PO 500 mg DAILY EVER Administration Bupropion HCl 150 mg 10/04/22 09:00 10/05/22 08:21 Bupropion Hcl Xl (24 Hr) 150 Mg Tabcr PO 150 mg QAM EVER Administration Cyanocobalamin 1,000 mcg 10/04/22 09:00 10/05/22 08:29 Cyanocobalamin 1,000 Mcg Tablet PO 1,000 mcg DAILY EVER Administration Duloxetine HCl 60 mg 10/04/22 09:00 10/05/22 08:29 Duloxetine Hcl 60 Mg Capsule.Dr PO 60 mg DAILY EVER Administration Hydralazine HCl 10 mg 10/04/22 21:02 10/05/22 06:39 Hydralazine Hcl 20 Mg/Ml Vial IV PUSH 10 mg Q6H PRN Administration Blood Pressure - High Lactated Ringer's 1,000 mls @ 100 mls/hr 10/03/22 18:30 10/05/22 06:40 Lr - Lactated Ringers Iv IV CONT 100 mls/hr .Q10H EVER Administration Irbesartan 150 mg 10/05/22 21:00 Irbesartan 150 Mg Tablet PO Q12HR [facility] Multivitamins Therapeutic 1 tablet 10/04/22 09:00 10/05/22 08:29 Multivitamins Therapeutic Tab (*Bkc) PO 1 tablet DAILY EVER Administration Phenazopyridine HCl 100 mg 10/04/22 12:52 10/04/22 23:28 Phenazopyridine Hcl 100 Mg Tablet PO 100 mg TIDWM PRN Administration dysuria Polyethylene Glycol 17 gm 10/04/22 21:00 10/05/22 08:29 Polyethylene Glycol 3350 17 Gm Powd.Pack PO 17 gm Q12H [facility] Administration Tramadol HCl 50 mg 10/03/22 22:56 10/04/22 06:34 Tramadol Hcl (*Crx) 50 Mg Tablet PO 50 mg Q6H PRN Administration Pain Rated 4-6 Radiology Results: ITS Impressions Abdomen/Pelvis CT 10/03/22 09:15 Impression: 5 mm right UVJ stone, with mild right hydroureteronephrosis and mildly delayed right nephrogram. Additional punctate nonobstructing right renal stone. Retrograde Pyelogram 10/03/22 21:54 IMPRESSION: 1. Naga
--- NOTE | 2022-10-05 11:29 | PM.IMPN ---
Progress Note: A&P Assessment and Plan (1) Ureteral stone with hydronephrosis: Code(s): N13.2 - Hydronephrosis with renal and ureteral calculous obstruction Status: Acute Assessment and Plan: Status post cystoscopy with right ureteroscopy, stone extraction, retrograde pyelogram, and ureteral stent placement. He is to follow-up with Dr. Hull in the office per his instructions. Analgesics available as needed. 09/04/2022 interval history: patient presented with right flank pain and CT of abdomen showed 5 mm in right UVJ was seen by urologist and had cystoscopy and stent was placed, patient was doing well clinically, however he was complaints pain along right flank and was seen by his urologist and added prydium, today patient flank pain is better but he complaints of constipation, bloating and passing minimal gas, normally patient has 3 BM in a day and he has not had any since 5 days, KUB showed, clonic stool, no obstruction, will give Miralax, and suppository, also patient BP is elevated most likely due to pain and stress, will monitor overnight and plan tomorrow. (2) Hypertension: Code(s): I10 - Essential (primary) hypertension Status: Acute Assessment and Plan: Blood pressures were quite elevated on arrival to the emergency department, likely due to pain. They have since improved. Continue antihypertensives and monitor closely. (3) Acute kidney injury: Code(s): N17.9 - Acute kidney failure, unspecified Status: Acute Assessment and Plan: Creatinine is nearly 2 times that of what he typically runs. He did have the right UVJ stone though there was only mild associated hydronephrosis. He denies significant NSAID use. He will be cautiously hydrated overnight and nephrotoxic agents will be avoided. Renal ultrasound has been ordered for a.m. to ensure the hydronephrosis is improving. Monitor strict I/O. (4) Tobacco use disorder, continuous: Code(s): F17.209 - Nicotine dependence, unspecified, with unspecified nicotine-induced disorders Status: Acute Assessment and Plan: Smoking cessation is encouraged and was discussed. He declines the need for nicotine patch. Subjective Date/time seen: 10/05/22 11:29 Status post cystoscopy with right ureteroscopy, stone extraction, retrograde pyelogram, and ureteral stent placement. He is to follow-up with Dr. Hull in the office per his instructions. Analgesics available as needed. 09/04/2022 interval history: patient presented with right flank pain and CT of abdomen showed 5 mm in right UVJ was seen by urologist and had cystoscopy and stent was placed, patient was doing well clinically, however he was complaints pain along right flank and was seen by his urologist and added prydium, today patient flank pain is better but he complaints of constipation, bloating and passing minimal gas, normally patient has 3 BM in a day and he has not had any since 5 days, KUB showed, clonic stool, no obstruction, will give Miralax, and suppository, also patient BP is elevated most likely due to pain and stress, will monitor overnight and plan tomorrow. Exam Narrative: Morbidly obese Patient is comfortable, NAD HEENT: eyes are clear and none icteric LUNGS: Normal respiratory effort ABD: distended Lower extremities: no edema SKIN: nonjaundiced Neuro: grossly intact. Objective Data Vital Signs Vital Signs: Vital Signs - 24 hr 10/04/22 14:05 10/04/22 16:45 10/04/22 21:45 Temperature 97.2 F L 97 F L 97.7 F Pulse Rate 71 71 83 Respiratory Rate 16 18 20 Blood Pressure 137/83 158/87 H 183/91 H Pulse Oximetry 98 99 98 Oxygen Delivery 10/05/22 00:07 10/05/22 00:13 10/04/22 20:00 Temperature 97.6 F Pulse Rate 72 72 Respiratory Rate 20 20 Blood Pressure 156/84 H Pulse Oximetry 97 97 Oxygen Delivery Room Air 10/05/22 07:35 10/05/22 08:25 Temperature 97.9 F Pulse Rate 70 Respiratory Rate 17 Blood Pressure 1
[2022-10-05] MEDS: polyethylene glycoL 3350 238 GM BOTTLE PO (17:36)
[2022-10-05] MEDS: PHENAZOPYRIDINE HCL 100 MG TABLET PO (20:47)
[2022-10-06 00:40] VITALS: PULSE 117; RESP 16; O2SAT 97
[2022-10-06 01:00] VITALS: BP 160/99; PULSE 112; RESP 20; TEMP 36.8; O2SAT 100
[2022-10-06] MEDS: LACTATED RINGERS 1,000 ML 100 ML IV CONT (03:43)
[2022-10-06] MEDS: hydrALAZINE HCL 20 MG/ML VIAL 10 MG IV PUSH (03:44)
[2022-10-06 04:45] VITALS: BP 192/105; PULSE 104; RESP 18; TEMP 35.9; O2SAT 99
[2022-10-06 05:02] VITALS: BP 173/98
[2022-10-06] MEDS: amLODIPine BESYLATE 5 MG TABLET PO (05:07)
[2022-10-06 06:45] LABS: Hemoglobin 12.9 g/dL (14.0-18.0); Mean Corpuscular HGB Conc 33.1 g/dl (32-36); Mean Corpuscular Hemoglobin 29.5 pg (26-34); Mean Corpuscular Volume 89.2 fl (80-100); Mean Platelet Volume 10.2 fl (7.4-10.4); Platelet Count Result 253 k/mm3 (150-375); Red Blood Count 4.37 M/mm3 (4.6-6.20); Red Cell Distribution Width 13.7 % (11.5-14.5); White Blood Count 9.2 K/mm3 (4.5-10.0)
[2022-10-06 06:58] LABS: Anion Gap 8 mmol/L (8-16); Blood Urea Nitrogen 13 mg/dL (9-20); Calcium 9.2 mg/dL (8.4-10.2); Carbon Dioxide 26 mmol/L (22-30); Chloride 105 mmol/L (98-107); Estimated CRCL calculation 122 ml/min; Estimated Glomerular Filt Rate > 60; Glucose 105 mg/dL (65-110); Potassium 3.2 mmol/L (3.4-5.0); Sodium 139 mmol/L (137-145)
[2022-10-06 08:00] VITALS: BP 145/97; PULSE 108; RESP 16; TEMP 37.3; O2SAT 98
[2022-10-06] MEDS: POTASSIUM CHLORIDE 20 MEQ TABLET 40 MEQ PO (08:55)
[2022-10-06] MEDS: ASCORBIC ACID 500 MG TABLET PO (08:56)
[2022-10-06] MEDS: buPROPion HCL XL (24 HR) 150 MG TABCR PO (08:56)
[2022-10-06] MEDS: CYANOCOBALAMIN 1,000 MCG TABLET 1000 MCG PO (08:56)
[2022-10-06] MEDS: IRBESARTAN 150 MG TABLET PO (08:56)
[2022-10-06] MEDS: MULTIVITAMINS THERAPEUTIC TAB (*BKC) 1 TABLET PO (08:56)
[2022-10-06] MEDS: DULoxetine HCL 60 MG CAPSULE.DR PO (08:56)
[2022-10-06] MEDS: polyethylene glycoL 3350 17 GM POWD.PACK PO (08:57)
--- NOTE | 2022-10-06 12:50 | PCCCNOTE ---
On 10/06/22, the student, [Lesley Hernandez ], provided care and completed [facility] documentation on this patient. I have reviewed the student's documentation and agree with the findings.
== END 2022-10-06 11:05 | disposition home or self-care (01) ==
LOC: ANHED 11:15 → ANHSURGERY 12:12 → ANH3MEDSUR 17:51
PROVIDERS: Emergency Medicine; Physician Assistant; Urology; Admitting Provider Internal Medicine; Emergency Provider Emergency Medicine; PCP Family Medicine; Visit Provider Family Medicine
PROC: (CPT 52352; principal; 2022-10-03 15:30)
DX: N13.2 Hydronephrosis with renal and ureteral calculous obstruction (principal); I10 Essential (primary) hypertension; N17.9 Acute kidney failure, unspecified; E78.5 Hyperlipidemia, unspecified; E78.2 Mixed hyperlipidemia; R73.9 Hyperglycemia, unspecified; F32.A Depression, unspecified; F41.9 Anxiety disorder, unspecified; E66.01 Morbid (severe) obesity due to excess calories; Z68.34 Body mass index [BMI] 34.0-34.9, adult; G47.33 Obstructive sleep apnea (adult) (pediatric); Z99.89 Dependence on other enabling machines and devices; F17.210 Nicotine dependence, cigarettes, uncomplicated; F10.90 Alcohol use, unspecified, uncomplicated; Z79.891 Long term (current) use of opiate analgesic; Z86.73 Personal history of transient ischemic attack (TIA), and cerebral infarction without residual deficits; Z79.899 Other long term (current) drug therapy; Z82.3 Family history of stroke; Z82.49 Family history of ischemic heart disease and other diseases of the circulatory system
CPT/HCPCS: 52352; 52332; 36415; 74018; 74177; 74420; 76775; 80048; 80053; 81001; 82365; 83690; 83735; 85025; 85027; 88300; 96361; 96374; 96375; 96376; 99285; A9270; C1769; C2617; G0378; J0360; J0690; J1100; J1170; J2250; J2405; J2704; J3010; J7030; J7120; Q9967

== ENCOUNTER 2023-11-19 14:20 | Emergency (ER) | payer BC, OTHER, SELFPAY ==
[2023-11-19 14:27] VITALS: BP 140/77; PULSE 86; RESP 20; TEMP 36.6; O2SAT 98
--- NOTE | 2023-11-19 15:27 | ED.SKABFB ---
HPI - Skin/Abscess/Foreign Bdy General Chief complaint: Skin/Abscess/Foreign Body Stated complaint: Insect Bite/Toe Time Seen by Provider: 11/19/23 15:17 Source: patient, RN notes reviewed and old records reviewed Mode of arrival: ambulatory Limitations: no limitations History of Present Illness HPI narrative: 58-year-old male to [facility] for complaint of single small red blister to top of left foot. Patient states that he noticed this after mowing yesterday. Patient denies allergies, foot pain, malaise, myalgias, pallor, fever. Patient has not attempted to treat at home. Patient able to ambulate to exam room without difficulty. Patient in no acute distress. Related Data Home Medications Medication Instructions Recorded Confirmed cyanocobalamin (vitamin B-12) 1,000 mcg PO DAILY 05/12/19 11/19/23 1,000 mcg tablet (Vitamin B-12) ascorbate calcium (vitamin C) 500 500 mg PO DAILY 07/22/22 11/19/23 mg tablet [id number] 333 mg-133 1 tablet PO DAILY 07/22/22 11/19/23 mg-5 mg tablet multivitamin (Daily Multi-Vitamin 1 tablet PO DAILY 07/22/22 11/19/23 tablet) tadalafil 10 mg tablet 10 mg PO DAILY PRN Sexual Activity 11/19/23 11/19/23 tadalafil 20 mg tablet 20 mg PO DAILY PRN Sexual Activity 11/19/23 11/19/23 Allergies Allergy/AdvReac Type Severity Reaction Status Date / Time No Known Allergies Allergy Verified 12/11/22 09:30 Review of Systems Review of Systems: All systems reviewed & are unremarkable except as noted in HPI and below Constitutional: Constitutional: Reports no additional constitutional complaints Eyes: Eyes: Reports no additional eye complaints ENT: Reports system reviewed and no additional complaints, except as documented Cardiovascular: Cardiovascular: Reports no additional cardiovascular complaints, Denies chest pain and Denies dyspnea Respiratory: Respiratory: Reports no additional respiratory complaints, Denies cough and Denies dyspnea Musculoskeletal: Musculoskeletal: Reports no additional musculoskeletal complaints Integumentary/Breasts: Skin/Breast: Reports lesions ( Single lesion left dorsal foot) Neurologic: Reports system reviewed and no additional complaints, except as documented Psychiatric: Psychiatric: Reports no additional psychiatric complaints PMFSH Past Medical History Medical History Abnormal fasting glucose (08/01/22) Glucose 103 on 08/01/2022. Fasting glucose 105 on 10/06/2022. Acute bronchitis Acute kidney injury Acute non-recurrent maxillary sinusitis Acute sinusitis Amputation of third toe, left, traumatic Lawnmower injury Anemia Hemoglobin 12.9 with iron 75, vitamin B12 834 on 10/06/2022. Anxiety Ataxia BMI 34.0-34.9,adult Cerebrovascular accident Attributed to hypertension. No residual deficits. Chronic depression Community acquired pneumonia (12/30/21) COVID negative. Chest x-ray 01/01/2022 with bilateral patchy infiltrates right lower lobe and left upper lobe. Degenerative arthritis of knee, bilateral Dental abscess Encounter for wellness examination in adult Erectile dysfunction Essential (primary) hypertension Gastro-esophageal reflux disease without esophagitis Hypokalemia (10/13/22) potassium 3.2 on 10/06/2022. Kidney stone Laceration of multiple sites of scalp and neck Left foot pain Mixed hyperlipidemia Total cholesterol 184, triglycerides 92, HDL 46, LDL 118 on 08/01/2022. Obesity (BMI 30-39.9) Obstructive sleep apnea Intolerant to CPAP. Osteoarthritis of left knee Pain of elbow on movement Peptic ulcer disease Right elbow pain Right leg pain Seasonal allergic rhinitis Swelling of elbow Tear of medial meniscus of right knee Status post partial medial meniscectomy with synovectomy April 28, [address] Thurman. Tobacco use disorder, continuous 1/2 of a pack of cigarettes daily. Surgical History Surgical History (Reviewed 11/19/23 @ 21:51 by
== END 2023-11-19 15:44 | disposition home or self-care (01) ==
PROVIDERS: Emergency Provider Nurse Practitioner Family; PCP Family Medicine
DX: S90.862A Insect bite (nonvenomous), left foot, initial encounter (principal); W57.XXXA Bitten or stung by nonvenomous insect and other nonvenomous arthropods, initial encounter; F17.210 Nicotine dependence, cigarettes, uncomplicated; Z86.73 Personal history of transient ischemic attack (TIA), and cerebral infarction without residual deficits; M17.0 Bilateral primary osteoarthritis of knee; I10 Essential (primary) hypertension; K21.9 Gastro-esophageal reflux disease without esophagitis; E78.2 Mixed hyperlipidemia; E66.9 Obesity, unspecified; Z68.35 Body mass index [BMI] 35.0-35.9, adult; G47.33 Obstructive sleep apnea (adult) (pediatric)
CPT/HCPCS: 99212; G0463

== ENCOUNTER 2024-01-06 09:57 | Emergency (ER) | payer BC, OTHER, SELFPAY ==
--- NOTE | ~2024-01-06 | CT_ITS ---
EXAMINATION: CT abdomen pelvis wo con DATE: 01/06/2024 11:29 INDICATION: Right flank pain. Nephrolithiasis. TECHNIQUE: Computed tomography (CT) of the abdomen and pelvis was performed without intravenous contr ast. Automated exposure control and iterative reconstruction technique were employed. The dose-length product was 536.59 mGy-cm. COMPARISON: 10/03/2022 FINDINGS: Unilateral noncalcified pleural plaque along the posterior left lower lobe which could be related to a prior exudative effusion. Lung bases are otherwise clear. Heart size is normal. Atherosclerotic cor onary artery calcific location. No pericardial or pleural effusion. Liver, gallbladder, spleen, pancr eas and bilateral adrenal glands are normal. No significant change in a 1.9 cm exophytic cyst at the upper pole of the right kidney. Bilateral nephrolithiasis with 3 mm nonobstructing stone at the upper pole the right kidney and 1 mm punctate stone at the mid left kidney. There is calcified atheroscler osis of the aorta and many of the other arteries which includes diffuse tiny atherosclerotic calcific ations at the bilateral renal rajwinder. Bilateral ureters are normal with no ureteral stones. No hydronep hrosis. Bladder is normal. A couple small intramural lipomas along the third portion of the duodenum the larger measuring 1.9 x 1.0 cm. Bowels including the appendix are otherwise normal. No free intrap eritoneal gas or fluid. No pathologically enlarged abdominal or pelvic lymphadenopathy. Moderate thor acolumbar spondylosis. IMPRESSION: 1. Bilateral nonobstructing nephrolithiasis. No ureteral stones or hydronephrosis. Reviewed, dictated and finalized at location A. IMPRESSION: 1. Bilateral nonobstructing nephrolithiasis. No ureteral stones or hydronephros is.
[2024-01-06 10:23] VITALS: BP 185/97; PULSE 73; RESP 17; TEMP 36.9; O2SAT 98
[2024-01-06 10:48] LABS: Basophils Absolute Auto 0.1 K/mm3 (0.0-0.1); Basophils Percent Auto 0.8 % (0.2-1.2); Eosinophils Absolute Auto 0.2 K/mm3 (0-0.3); Eosinophils Percent Auto 1.9 % (0-4.4); Hematocrit 38.5 % (42.0-52.0); Hemoglobin 12.9 g/dL (14.0-18.0); Immature Granulocyte Absolute 0.02 K/mm3 (0.00-0.031); Immature Granulocyte Percent A 0.2 % (0-0.5); Lymphocytes Absolute Auto 1.92 K/mm3 (0.9-3.2); Lymphocytes Percent Auto 23.1 % (18.3-44.2); Mean Corpuscular HGB Conc 33.5 g/dl (32-36); Mean Corpuscular Volume 89.5 fl (80-100); Mean Platelet Volume 10.2 fl (7.4-10.4); Monocytes Absolute Auto 0.6 K/mm3 (0.1-0.6); Monocytes Percent Auto 7.3 % (2.6-8.5); Neutrophils Absolute Auto 5.5 K/mm3 (1.3-6.7); Neutrophils Percent Auto 66.7 % (45.5-73.1); Platelet Count Result 268 k/mm3 (150-375); Red Cell Distribution Width 13.7 % (11.5-14.5); White Blood Count 8.3 K/mm3 (4.5-10.0)
[2024-01-06 10:54] LABS: Alanine Aminotransferase 14 U/L (6-50); Albumin Level 4.5 g/dL (3.5-5.1); Alkaline Phosphatase 86 U/L (38-126); Anion Gap 9 mmol/L (4-12); Aspartate Amino Transferase 20 U/L (17-59); Bilirubin,Total 0.4 mg/dL (0.2-1.3); Blood Urea Nitrogen 17 mg/dL (9-20); Calcium 9.2 mg/dL (8.4-10.2); Carbon Dioxide 27 mmol/L (22-30); Chloride 103 mmol/L (98-107); Estimated CRCL calculation 107 ml/min; Estimated Glomerular Filt Rate > 60; Glucose 98 mg/dL (65-110); Lipase 33 U/L (23-300); Potassium 3.6 mmol/L (3.4-5.0); Sodium 139 mmol/L (137-145)
[2024-01-06 11:02] LABS: Add Urine Microscopic? YES; Appearance Urine Clear (Clear); Bacteria Urine None Seen /hpf; Bilirubin Urine 1+ (Negative); Blood Urine Negative (Negative); Color Urine Dark Yellow (Yellow); Glucose Urine UA Negative (Negative); Ketones Urine Negative (Negative); Leukocyte Esterase Ur Negative LEU/UL (Negative); Need Manual Microscopic Reviewed; Nitrate Urine Positive (Negative); Non Pathogenic Casts 0-2; Protein Urine Negative (Negative); RBC Urine 0-2 /hpf (0-2); Specific Grav Ur 1.021 (1.001-1.035); Squamous Epithelial Cell Urine None Seen /hpf (Few); WBC Urine 0-5 /hpf (0-3)
--- NOTE | 2024-01-06 11:11 | ED.NAVMDI ---
HPI - Nausea/Vomiting/Diarrhea General Chief complaint: Nausea/Vomiting/Diarrhea Stated complaint: DIARRHEA X1WK,ABD PAIN Time Seen by Provider: 01/06/24 11:07 History of Present Illness HPI Narrative: 58-year-old male presents to the emergency room for evaluation of diarrhea that has been present for 8 days. Patient denies any recent outside the [place] travel. Denies fevers. Denies abdominal pain. Denies blood in stool. Denies nausea vomiting. States 2 days ago began developing right flank pain, concern he may have another kidney stone. No dysuria or urinary frequency or urgency. Has had travel as diarrhea x1, when he was stationed in [facility]. Related Data Home Medications Medication Instructions Recorded Confirmed cyanocobalamin (vitamin B-12) 1,000 mcg PO DAILY 05/12/19 11/19/23 1,000 mcg tablet (Vitamin B-12) ascorbate calcium (vitamin C) 500 500 mg PO DAILY 07/22/22 11/19/23 mg tablet [id number] 333 mg-133 1 tablet PO DAILY 07/22/22 11/19/23 mg-5 mg tablet multivitamin (Daily Multi-Vitamin 1 tablet PO DAILY 07/22/22 11/19/23 tablet) tadalafil 10 mg tablet 10 mg PO DAILY PRN Sexual Activity 11/19/23 11/19/23 tadalafil 20 mg tablet 20 mg PO DAILY PRN Sexual Activity 11/19/23 11/19/23 Allergies Allergy/AdvReac Type Severity Reaction Status Date / Time No Known Allergies Allergy Verified 01/06/24 10:30 Review of Systems Review of Systems: ROS unremarkable except for in HPI PMFSH Past Medical History Medical History Abnormal fasting glucose (08/01/22) Glucose 103 on 08/01/2022. Fasting glucose 105 on 10/06/2022. Acute bronchitis Acute kidney injury Acute non-recurrent maxillary sinusitis Acute sinusitis Amputation of third toe, left, traumatic Lawnmower injury Anemia Hemoglobin 12.9 with iron 75, vitamin B12 834 on 10/06/2022. Anxiety Ataxia BMI 34.0-34.9,adult Cerebrovascular accident Attributed to hypertension. No residual deficits. Chronic depression Community acquired pneumonia (12/30/21) COVID negative. Chest x-ray 01/01/2022 with bilateral patchy infiltrates right lower lobe and left upper lobe. Degenerative arthritis of knee, bilateral Dental abscess Encounter for wellness examination in adult Erectile dysfunction Essential (primary) hypertension Gastro-esophageal reflux disease without esophagitis Hypokalemia (10/13/22) potassium 3.2 on 10/06/2022. Kidney stone Laceration of multiple sites of scalp and neck Left foot pain Mixed hyperlipidemia Total cholesterol 184, triglycerides 92, HDL 46, LDL 118 on 08/01/2022. Obesity (BMI 30-39.9) Obstructive sleep apnea Intolerant to CPAP. Osteoarthritis of left knee Pain of elbow on movement Peptic ulcer disease Right elbow pain Right leg pain Seasonal allergic rhinitis Swelling of elbow Tear of medial meniscus of right knee Status post partial medial meniscectomy with synovectomy April 28, [address] Thurman. Tobacco use disorder, continuous 1/2 of a pack of cigarettes daily. Surgical History Surgical History History of arthroscopy of left knee Status post medial meniscectomy of right knee (~04/28/22) Partial medial meniscectomy with synovectomy. Family History Family History Grandparent Acute myocardial infarction, Onset Age: 52 Family history of liver disease, Onset Age: 60 Family history of malignant neoplasm, Onset Age: 70 Father Hypertension Heart disease Cerebrovascular accident Mother Hypertension Social History Social History Social History: Mr. Mcqueen lives at home with his . He is independent in his daily activities. 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 His PCP is Dr. Islas. He designates his , Eugenia, as his surrogate
[2024-01-06] MEDS: SODIUM CHLORIDE 0.9% IV 1,000 ML 999 ML IV CONT (11:19)
[2024-01-06 13:02] VITALS: BP 160/99; PULSE 76; RESP 16; O2SAT 97
[2024-01-06 13:25] LABS: Toxigenic C. Diff NEGATIVE (NEGATIVE)
== END 2024-01-06 13:03 | disposition home or self-care (01) ==
PROVIDERS: Emergency Medicine; Emergency Provider Nurse Practitioner Family; PCP Family Medicine
DX: R19.7 Diarrhea, unspecified (principal); I10 Essential (primary) hypertension; E78.2 Mixed hyperlipidemia; E66.9 Obesity, unspecified; Z68.34 Body mass index [BMI] 34.0-34.9, adult; G47.33 Obstructive sleep apnea (adult) (pediatric); D64.9 Anemia, unspecified; M17.12 Unilateral primary osteoarthritis, left knee; K21.9 Gastro-esophageal reflux disease without esophagitis; F32.A Depression, unspecified; F41.9 Anxiety disorder, unspecified; F17.210 Nicotine dependence, cigarettes, uncomplicated; Z86.73 Personal history of transient ischemic attack (TIA), and cerebral infarction without residual deficits; Z87.442 Personal history of urinary calculi; Z87.01 Personal history of pneumonia (recurrent); Z79.899 Other long term (current) drug therapy
CPT/HCPCS: 36415; 74176; 80053; 81001; 83690; 85025; 87045; 87177; 87209; 87427; 87449; 87493; 96360; 96361; 99284; J7030

== ENCOUNTER 2024-02-19 10:28 | Outpatient (CLI) | payer BC, OTHER, SELFPAY ==
[2024-02-19 11:45] LABS: Erythrocyte Sedimentation Rate 20 mm/hr (0-20)
[2024-02-19 11:58] LABS: Iron 52 ug/dL (49-181)
[2024-02-19 12:10] LABS: Percent Iron Saturation 15 % (20-50)
[2024-02-19 12:26] LABS: CRP 0.9 mg/dL (<1.0)
[2024-02-19 13:28] LABS: Folic Acid 7.6 ng/mL (2.76->20)
[2024-02-23 18:24] LABS: Immunoglobulin A 304 mg/dL (47-310); TTG IGA AB 7.7 U/mL
== END 2024-02-19 10:29 | disposition home or self-care (01) ==
LOC: ANHLAB 10:29
PROVIDERS: PCP Family Medicine; Visit Provider Nurse Practitioner
DX: D64.9 Anemia, unspecified (principal); R19.4 Change in bowel habit; K52.9 Noninfective gastroenteritis and colitis, unspecified; K31.9 Disease of stomach and duodenum, unspecified; K21.9 Gastro-esophageal reflux disease without esophagitis
CPT/HCPCS: 36415; 82607; 82728; 82746; 82784; 83540; 83550; 84443; 85652; 86140; 86364

== ENCOUNTER 2024-04-04 00:24 | Day surgery (SDC) | payer BC, SELFPAY ==
[2024-03-15 10:10] VITALS: BMI 34.7
[2024-04-04 12:40] VITALS: BP 176/98; PULSE 72; RESP 18; TEMP 36.2; O2SAT 100
--- NOTE | 2024-04-04 12:43 | WPDANESEPPF ---
Anes - Initial Pre Proc Eval Procedure: Operation Date: 04/04/24 14:00 Proposed Procedures p Esophagogastroduodenoscopy & Colonoscopy - Ruperto Hdz MD Date/Time: 04/04/24 12:43 Surgeon: Ruperto Hdz MD Pre Op Diagnosis: Gerd, Gastroenteritis/colitis, CIBH Patient Data Age: 58 Gender: M Height: 1.75 m Weight: 102.2 kg Last Vital Signs Temp 36.2 C L 04/04/24 12:40 Pulse 72 04/04/24 12:40 Resp 18 04/04/24 12:40 BP 176/98 H 04/04/24 12:40 Pulse Ox 100 04/04/24 12:40 O2 Del Method Room Air 04/04/24 12:40 Allergies Allergy/AdvReac Type Severity Reaction Status Date / Time No Known Allergies Allergy Verified 04/04/24 12:38 Home Medications Medication Instructions Recorded Confirmed Type amlodipine 5 mg tablet 5 mg PO . q.a.m. #90 tabs 09/25/23 04/04/24 Rx duloxetine 60 mg capsule,delayed 60 mg PO DAILY #90 caps 09/25/23 04/04/24 Rx release bupropion HCl 150 mg 24 hr tablet, 150 mg PO QAM #30 tabs 10/08/23 04/04/24 Rx extended release (Wellbutrin XL) irbesartan 300 mg tablet 300 mg PO DAILY #90 tabs 10/08/23 04/04/24 Rx tadalafil 10 mg tablet 10 mg PO DAILY PRN Sexual Activity 11/19/23 04/04/24 History tadalafil 20 mg tablet 20 mg PO DAILY PRN Sexual Activity 11/19/23 04/04/24 History cholestyramine (with sugar) 4 gram 4 g PO BID PRN diarrhea #378 grams 01/26/24 04/04/24 Rx oral powder diphenoxylate-atropine 2.5 1 tablet PO TID PRN diarrhea #60 01/26/24 04/04/24 Rx mg-0.025 mg tablet (Lomotil) tabs chlordiazepoxide-clidinium 5 1 cap PO BID PRN diarrhea #30 caps 02/09/24 04/04/24 Rx mg-2.5 mg capsule (Librax (with clidinium)) colestipol 1 gram tablet 1 g PO BID 1 month #60 tabs 03/03/24 04/04/24 Rx Patient hx anesthesia problems: none Family hx anesthesia problems: none Results Review: All pre-operative results and documents have been reviewed as part of the pre-operative evaluation. [facility] Past Medical History Medical History Abnormal fasting glucose (08/01/22) Glucose 103 on 08/01/2022. Fasting glucose 105 on 10/06/2022. Acute bronchitis Acute kidney injury Acute non-recurrent maxillary sinusitis Acute sinusitis Amputation of third toe, left, traumatic Lawnmower injury Anemia Hemoglobin 12.9 with iron 75, vitamin B12 834 on 10/06/2022. Hemoglobin 12.9 on 01/06/2024. Iron 52 with 15% saturation and ferritin 12.4 with vitamin B12 565 and folic acid 7.7 on 02/19/2024. Anxiety Ataxia BMI 34.0-34.9,adult Cerebrovascular accident Attributed to hypertension. No residual deficits. Chronic depression Community acquired pneumonia (12/30/21) COVID negative. Chest x-ray 01/01/2022 with bilateral patchy infiltrates right lower lobe and left upper lobe. Degenerative arthritis of knee, bilateral Dental abscess Encounter for wellness examination in adult Erectile dysfunction Essential (primary) hypertension Gastro-esophageal reflux disease without esophagitis Hypokalemia (10/13/22) potassium 3.2 on 10/06/2022. potassium 3.6 on 01/06/2024. Kidney stone Laceration of multiple sites of scalp and neck Left foot pain Mixed hyperlipidemia Total cholesterol 184, triglycerides 92, HDL 46, LDL 118 on 08/01/2022. Obesity (BMI 30-39.9) Obstructive sleep apnea Intolerant to CPAP. Osteoarthritis of left knee Pain of elbow on movement Peptic ulcer disease Right elbow pain Right leg pain Seasonal allergic rhinitis Swelling of elbow Tear of medial meniscus of right knee Status post partial medial meniscectomy with synovectomy April 28, [address] Thurman. Tobacco use disorder, continuous 1/2 of a pack of cigarettes daily. Surgical History Surgical History History of arthroscopy of left knee Status post medial meniscectomy of right knee (~04/28/22) Partial medial meniscectomy with synovectomy. Family History Family Histo
[2024-04-04] MEDS: LACTATED RINGERS 1,000 ML 150 ML IV CONT (12:52)
--- NOTE | 2024-04-04 13:03 | PM.HPGS ---
History of Present Illness History of Present Illness Consent: Risks, benefits, and alternatives have been discussed and questions answered. Patient agrees to proceed with procedure. Chief complaint: Gerd, Gastroenteritis/colitis, [facility] Narrative: Avi Mcqueen is a 58 year old male with diarrhea since December, CT scan no major findings, no previous scopes. Serology for celiac negative, stool negative for infection Review of Systems Review of Systems: All systems reviewed & are unremarkable except as noted in HPI and below PMFSH Past Medical History Medical History Abnormal fasting glucose (08/01/22) Glucose 103 on 08/01/2022. Fasting glucose 105 on 10/06/2022. Acute bronchitis Acute kidney injury Acute non-recurrent maxillary sinusitis Acute sinusitis Amputation of third toe, left, traumatic Lawnmower injury Anemia Hemoglobin 12.9 with iron 75, vitamin B12 834 on 10/06/2022. Hemoglobin 12.9 on 01/06/2024. Iron 52 with 15% saturation and ferritin 12.4 with vitamin B12 565 and folic acid 7.7 on 02/19/2024. Anxiety Ataxia BMI 34.0-34.9,adult Cerebrovascular accident Attributed to hypertension. No residual deficits. Chronic depression Community acquired pneumonia (12/30/21) COVID negative. Chest x-ray 01/01/2022 with bilateral patchy infiltrates right lower lobe and left upper lobe. Degenerative arthritis of knee, bilateral Dental abscess Encounter for wellness examination in adult Erectile dysfunction Essential (primary) hypertension Gastro-esophageal reflux disease without esophagitis Hypokalemia (10/13/22) potassium 3.2 on 10/06/2022. potassium 3.6 on 01/06/2024. Kidney stone Laceration of multiple sites of scalp and neck Left foot pain Mixed hyperlipidemia Total cholesterol 184, triglycerides 92, HDL 46, LDL 118 on 08/01/2022. Obesity (BMI 30-39.9) Obstructive sleep apnea Intolerant to CPAP. Osteoarthritis of left knee Pain of elbow on movement Peptic ulcer disease Right elbow pain Right leg pain Seasonal allergic rhinitis Swelling of elbow Tear of medial meniscus of right knee Status post partial medial meniscectomy with synovectomy April 28, [address] Thurman. Tobacco use disorder, continuous 1/2 of a pack of cigarettes daily. Surgical History Surgical History History of arthroscopy of left knee Status post medial meniscectomy of right knee (~04/28/22) Partial medial meniscectomy with synovectomy. Family History Family History Grandparent Acute myocardial infarction, Onset Age: 52 Family history of liver disease, Onset Age: 60 Family history of malignant neoplasm, Onset Age: 70 Father Hypertension Heart disease Cerebrovascular accident Mother Hypertension Social History Social History Social History: Mr. Mcqueen lives at home with his . He is independent in his daily activities. 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 His PCP is Dr. Islas. He designates his , Eugenia, as his surrogate decision maker and he would like to be a full code. Smoking packs per day: 0.5 Smoking cigarettes per day: 10.0 Years smoked: 30 Smoking pack-years: 15.00 Smoking status: Current every day smoker Tobacco type: cigarettes Second hand tobacco smoke exposure: Yes Alcohol intake: current Drinks per week: 4 Alcohol use details: Beer. Substance use: never Substance use type: does not use Lack of Transportation: No Lack of Food: Never True Current Housing: I Have Housing Concerned About Future Housing: No Difficulty Paying Gas/Electric Bills: No Difficulty Paying for Meds: No Currently Unemployed: No Education: Associate Degree Difficulty w/ Childcare or Family Care: No Living arrangements: with family Occupation/Educati
--- NOTE | 2024-04-04 13:17 | SUR.OPER ---
EGD: [id number] COLON: Start 1317
[2024-04-04 13:40] VITALS: BP 139/81; PULSE 67; RESP 22; O2SAT 100
[2024-04-04 13:50] VITALS: BP 157/95; PULSE 71; RESP 17; O2SAT 99
[2024-04-04 14:00] VITALS: BP 149/95; PULSE 65; RESP 19; O2SAT 99
== END 2024-04-04 14:13 | disposition home or self-care (01) ==
PROVIDERS: PCP Family Medicine; Referring Provider Nurse Practitioner; Visit Provider Internal Medicine Gastroenterology
PROC: 0DJ08ZZ Inspection of Upper Intestinal Tract, Via Natural or Artificial Opening Endoscopic (ICD-10-PCS; CPT 43235; principal; 2024-04-04 14:00)
DX: D12.3 Benign neoplasm of transverse colon (principal); D12.5 Benign neoplasm of sigmoid colon; K62.1 Rectal polyp; K64.8 Other hemorrhoids; K29.50 Unspecified chronic gastritis without bleeding; K21.9 Gastro-esophageal reflux disease without esophagitis; I10 Essential (primary) hypertension; E78.2 Mixed hyperlipidemia; G47.33 Obstructive sleep apnea (adult) (pediatric); D64.9 Anemia, unspecified; F41.9 Anxiety disorder, unspecified; F32.A Depression, unspecified; M17.0 Bilateral primary osteoarthritis of knee; N52.9 Male erectile dysfunction, unspecified; E87.6 Hypokalemia; F17.210 Nicotine dependence, cigarettes, uncomplicated; E66.9 Obesity, unspecified; Z68.33 Body mass index [BMI] 33.0-33.9, adult; Z98.890 Other specified postprocedural states; Z89.422 Acquired absence of other left toe(s); Z87.442 Personal history of urinary calculi; Z86.79 Personal history of other diseases of the circulatory system; Z80.9 Family history of malignant neoplasm, unspecified; Z82.49 Family history of ischemic heart disease and other diseases of the circulatory system
CPT/HCPCS: 43239; 45380; 45385; 88305; J2003; J2704; J7120

== ENCOUNTER 2024-06-06 11:16 | Emergency (ER) | payer BC, OTHER, SELFPAY ==
[2024-06-06 11:22] VITALS: BP 156/91; PULSE 72; RESP 20; TEMP 36.8; O2SAT 100
--- NOTE | 2024-06-06 12:10 | ED_ITS ---
HPI - URI/Sore Throat General Chief Complaint: Upper Respiratory Infection Stated Complaint: Sore Throat/Congestion/Light Headed Time Seen by Provider: 06/06/24 12:10 Source: patient Mode of arrival: ambulatory Limitations: no limitations History of Present Illness HPI Narrative: 59-year-old male presented for complaint of nasal congestion and drainage, cough and chest congestion. Onset 3 weeks. Taking Goldie-Theriot for symptoms. Denies shortness of breath, wheezing, nausea, vomiting, fevers or lethargy. Smokes half pack per day. Related Data Home Medications ?Medication ?Instructions ?Recorded ?Confirmed ?Last Taken ?Type tadalafil 10 mg tablet 10 mg PO DAILY PRN Sexual Activity 11/19/23 04/04/24 Unknown History tadalafil 20 mg tablet 20 mg PO DAILY PRN Sexual Activity 11/19/23 06/06/24 Unknown History Allergies Allergy/AdvReac Type Severity Reaction Status Date / Time No Known Allergies Allergy Verified 04/04/24 12:38 Review of Systems Review of Systems: CONSTITUTIONAL: Denies body aches, fever, chills, or sweats. EYES: Denies visual changes, redness, or discharge. ENT: reports rhinorrhea, congestion, sore throat CARDIOVASCULAR: Denies chest pain, palpitations, or edema. RESPIRATORY: Reports cough, denies sob, wheezing. MUSCULOSKELETAL: Denies back pain, joint pain, or myalgia. NEUROLOGIC: Denies headache, numbness, tingling, or weakness. All systems reviewed & are unremarkable except as noted in HPI and below PMFSH Past Medical History Medical History Basal cell carcinoma (~05/24/24) nodular basal cell carcinoma right posterior neck and left upper arm 05/24/2024 treated by community health director PTSD (post-traumatic stress disorder) from service with disability rating Polyp of colon (04/04/24) multiple colon polyps , tubular adenomas, on 04/04/2024 with recheck in 3 years. Obesity (BMI 30-39.9) Hypokalemia (10/13/22) potassium 3.2 on 10/06/2022. potassium 3.6 on 01/06/2024. Acute sinusitis Anemia Hemoglobin 12.9 with iron 75, vitamin B12 834 on 10/06/2022. Hemoglobin 12.9 on 01/06/2024. Iron 52 with 15% saturation and ferritin 12.4 with vitamin B12 565 and folic acid 7.7 on 02/19/2024. Cerebrovascular accident Attributed to hypertension. No residual deficits. Acute kidney injury Kidney stone Abnormal fasting glucose (08/01/22) Glucose 103 on 08/01/2022. Fasting glucose 105 on 10/06/2022. Encounter for wellness examination in adult Tear of medial meniscus of right knee Status post partial medial meniscectomy with synovectomy April 28, [address] Thurman. Degenerative arthritis of knee, bilateral Amputation of third toe, left, traumatic Lawnmower injury Community acquired pneumonia (12/30/21) COVID negative. Chest x-ray 01/01/2022 with bilateral patchy infiltrates right lower lobe and left upper lobe. Osteoarthritis of left knee Gastro-esophageal reflux disease without esophagitis Obstructive sleep apnea (~07/09/17) Intolerant to CPAP. home sleep study on 07/09/2017 with BRIAN with AHI of 25.1 with oxygen saturation down to 90%. CPAP titration on 08/16/2017 with CPAP at 8 cm water pressure with AirFit P 10 medium interface. BMI 34.0-34.9,adult Swelling of elbow Pain of elbow on movement Right elbow pain Erectile dysfunction Right leg pain Dental abscess Tobacco use disorder, continuous 1 pack of cigarettes daily. Peptic ulcer disease Seasonal allergic rhinitis Laceration of multiple sites of scalp and neck Anxiety Acute bronchitis Acute non-recurrent maxillary sinusitis Left foot pain Ataxia Chronic depression Essential (primary) hypertension Mixed hyperlipidemia Total cholesterol 184, triglycerides 92, HDL 46, LDL 118 on 08/01/2022. Surgical History Surgical History Status post medial meniscectomy of right knee (~04/28/22) Partial medial meniscectomy with synovectomy. History of arthroscopy of left knee Family History Family History Grandparent Acute myocardial infarction, Onset Age: 52 Family history of liver disease, Onset Age: 60 Family history of malignant neoplasm, Onset Age: 70 Father Hypertension Heart disease Cerebrovascular accident Mother Hypertension Social History Social History Social History: Mr. Mcqueen lives at home with his . He is independent in his daily activities. 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 His PCP is Dr. Islas. He designates his , Eugenia, as his surrogate decision maker and he would like to be a full code. Smoking packs per day: 0.5 Smoking cigarettes per day: 10.0 Years smoked: 30 Smoking pack-years: 15.00 Smoking status: Current every day smoker Tobacco type: cigarettes Second hand tobacco smoke exposure: Yes Alcohol intake: current Drinks per week: 4 Alcohol use details: Beer. 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 Spiritual care concerns: No Comments At time of signature, I have reviewed and agree with nursing past medical, surgical, social and family history unless otherwise noted. Please see nursing chart for further information. There is no relevant family history pertinent to the presenting complaint Exam Narrative: GENERAL: Well-appearing, in no acute distress. EYES: EOMI. No redness or drainage. Conjunctivae normal. ENT: Mucous membranes pink and moist. No rhinorrhea. TMs normal bilaterally. Throat normal. Uvula midline. NECK: Normal AROM. Supple. CHEST: No respiratory distress. lungs clear to all canales. HEART: Regular rate and rhythm. No murmur appreciated. SKIN: Warm, dry, no rash. Capillary refill normal. Normal skin turgor. NEURO: Alert and oriented x3. Gait steady. PSYCH: Normal affect. Course Course Emergency Course: Patient is aware of diagnosis, understands and agrees to treatment plan. Anticipatory guidance given. Patient agrees to follow-up as directed and is aware of reasons to seek care at the emergency department. Portions of this record may have been created with voice recognition software Level of Care: Express Care Visit Vital Signs Vital signs: Vital Signs Temperature 98.2 F 06/06/24 11:22 Pulse Rate 72 06/06/24 11:22 Respiratory Rate 20 06/06/24 11:22 Blood Pressure 156/91 H 06/06/24 11:22 Pulse Oximetry 100 06/06/24 11:22 Oxygen Delivery Room Air 06/06/24 11:22 Temperature 98.2 F 06/06/24 11:22 Pulse Rate 72 06/06/24 11:22 Respiratory Rate 20 06/06/24 11:22 Blood Pressure 156/91 H 06/06/24 11:22 Pulse Oximetry 100 06/06/24 11:22 Oxygen Delivery Room Air 06/06/24 11:22 MDM - URI/Sore Throat MDM Narrative Medical decision making narrative: Discussed physical exam findings. Advised supportive measures and signs/symptoms to go to the ER. Pt is appropriate for outpt treatment and f/u. Differential Diagnosis Differential diagnosis: Likely upper respiratory infection, sinusitis, viral infection, bronchitis and other ( pneumonia, COPD exacerbation) Discharge Plan Discharge Clinical Impression: Bronchitis Patient Disposition: Home, Self-Care Condition: Stable Instructions: Antibiotic Form, Acute Bronchitis (ED), Rhinosinusitis (ED) Additional Instructions: Acute bronchitis can be contagious because it is usually caused by infection with a virus or bacteria. It is usually for a few days but you can be contagious for up to one week. Take medication as directed Recommend Flonase spray and Zyrtec (or Claritin/Priscila) over the counter Cough syrup may cause drowsiness; avoid driving or take it at night time. Tylenol 1000mg every 8 hours as needed for pain Symptomatic treatment includes: rest, fluids, and increase humidity of the air at home. Follow up with your primary care provider as needed in 1 week Go to the ER for worsening symptoms or concerns Patient Language: Kittitian Prescriptions: New benzonatate 200 mg capsule 200 mg PO TID PRN (Reason: cough) Qty: 20 0RF methylprednisolone [Medrol (Mauricio)] 4 mg tablets,dose pack See Rx Instructions .ROUTE .COMPLEX Qty: 21 0RF Rx Instructions: orally per package directions amoxicillin-pot clavulanate 875-125 mg tablet 1 tablet PO Q12H 7 Days Qty: 14 0RF No Action tadalafil 10 mg tablet 10 mg PO DAILY PRN (Reason: Sexual Activity) tadalafil 20 mg tablet 20 mg PO DAILY PRN (Reason: Sexual Activity) bupropion HCl [Wellbutrin XL] 150 mg tablet extended release 24 hr 150 mg PO QAM Qty: 30 11RF irbesartan 300 mg tablet 300 mg PO DAILY Qty: 90 3RF amlodipine 5 mg tablet 5 mg PO . q.a.m. Qty: 90 3RF cholestyramine (with sugar) 4 gram powder 4 g PO BID PRN (Reason: diarrhea) Qty: 378 11RF Rx Instructions: administer w/meal; avoid other meds within 1hr before or 4-6hr after dose diphenoxylate-atropine [Lomotil] 2.5-0.025 mg tablet 1 tablet PO TID PRN (Reason: diarrhea) Qty: 60 0RF chlordiazepoxide-clidinium [Librax (with clidinium)] 5-2.5 mg capsule 1 cap PO BID PRN (Reason: diarrhea) Qty: 30 0RF duloxetine 60 mg capsule,delayed release(DR/EC) 60 mg PO DAILY Qty: 90 3RF colestipol 1 gram tablet 1 g PO BID 90 Days Qty: 180 3RF Follow-up/Referrals: Noam Islas MD [Primary Care Provider] - Time of Disposition: 12:15
== END 2024-06-06 12:22 | disposition home or self-care (01) ==
PROVIDERS: Emergency Provider Nurse Practitioner Family; PCP Family Medicine
DX: J40 Bronchitis, not specified as acute or chronic (principal); F17.210 Nicotine dependence, cigarettes, uncomplicated; I10 Essential (primary) hypertension; E78.2 Mixed hyperlipidemia; E66.9 Obesity, unspecified; Z86.73 Personal history of transient ischemic attack (TIA), and cerebral infarction without residual deficits; M17.0 Bilateral primary osteoarthritis of knee; K21.9 Gastro-esophageal reflux disease without esophagitis; Z85.828 Personal history of other malignant neoplasm of skin; G47.33 Obstructive sleep apnea (adult) (pediatric); Z68.34 Body mass index [BMI] 34.0-34.9, adult
CPT/HCPCS: 99213; G0463

== ENCOUNTER 2024-06-13 16:03 | Outpatient (CLI) | payer BC, OTHER, SELFPAY ==
[2024-06-13 17:15] LABS: Hemoglobin 13.5 g/dL (14.0-18.0); Mean Corpuscular HGB Conc 33.8 g/dl (32-36); Mean Corpuscular Hemoglobin 29.6 pg (26-34); Mean Corpuscular Volume 87.7 fl (80-100); Mean Platelet Volume 10.4 fl (7.4-10.4); Platelet Count Result 279 k/mm3 (150-375); Red Blood Count 4.56 M/mm3 (4.6-6.20); Red Cell Distribution Width 14.6 % (11.5-14.5); White Blood Count 11.7 K/mm3 (4.5-10.0)
[2024-06-13 17:30] LABS: Iron 84 ug/dL (49-181)
[2024-06-13 17:40] LABS: Percent Iron Saturation 24 % (20-50)
[2024-06-15 03:14] LABS: Endomysial Ab (IgA) Screen NEGATIVE (NEGATIVE)
[2024-06-15 03:22] LABS: Gliadin Gluten IgA 6.2 U/mL
[2024-06-16 08:30] LABS: Endomysial Additional Testing Not Indicated
[2024-06-20 11:47] LABS: Reference Lab Test Name HLA Typing Celiac
== END 2024-06-13 16:04 | disposition home or self-care (01) ==
PROVIDERS: PCP Family Medicine; Visit Provider Nurse Practitioner
DX: R85.7 Abnormal histological findings in specimens from digestive organs and abdominal cavity (principal); K31.9 Disease of stomach and duodenum, unspecified; D64.9 Anemia, unspecified; K52.9 Noninfective gastroenteritis and colitis, unspecified; D12.6 Benign neoplasm of colon, unspecified
CPT/HCPCS: 36415; 81376; 81382; 82728; 83540; 83550; 85027; 86255; 86364

== ENCOUNTER 2025-05-10 11:32 | Emergency (ER) | payer OTHER, SELFPAY ==
--- NOTE | ~2025-05-10 | XR_ITS ---
EXAMINATION: XR ankle RT 2V, XR foot RT min 3V DATE: 05/10/2025 12:09 INDICATION: Lateral right foot and ankle swelling and pain post injury TECHNIQUE: 1. Anteroposterior and lateral view of the right ankle were obtained. 2. Dorsoplantar, two oblique and lateral views of the right foot were obtained. COMPARISON: None. FINDINGS: Alignment of the right foot and ankle is normal. No fracture or osteochondral lesion. 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 No ankle joint effusion. Soft tissue swelling about the ankle most prominent laterally and extending over the dorsolateral aspect of the mid and hindfoot. IMPRESSION: 1. No acute osseous abnormality. Reviewed, dictated and finalized at location A. BATTALION CHIEF IMPRESSION: 1. No acute osseous abnormality.
[2025-05-10 11:50] VITALS: BP 166/96; PULSE 78; RESP 16; TEMP 36.6; O2SAT 98
--- NOTE | 2025-05-10 14:29 | ED.LOWEXIN ---
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 09/29 pain Related Data Home Medications ?Medication ?Instructions ?Recorded ?Confirmed ?Last Taken ?Type tadalafil 10 mg tablet 10 mg PO DAILY PRN Sexual Activity 11/19/23 04/04/24 Unknown History Held on 11/24/24. Instructions: Patient no longer taking Allergies Allergy/AdvReac Type Severity Reaction Status Date / Time No Known Allergies Allergy Verified 04/04/24 12:38 Review of Systems Review of Systems: All systems reviewed & are unremarkable except as noted in HPI and below PMFSH Past Medical History Medical History (Updated 05/10/25 @ 14:38 by Beth Briones III, DO) Parkinson disease, symptomatic (~05/09/24) Basal cell carcinoma (~05/24/24) nodular basal cell carcinoma right posterior neck and left upper arm 05/24/2024 treated by hospitality ambassador PTSD (post-traumatic stress disorder) from service with disability rating Polyp of colon (04/04/24) multiple colon polyps , tubular adenomas, on 04/04/2024 with recheck in 3 years. Obesity (BMI 30-39.9) Hypokalemia (10/13/22) potassium 3.2 on 10/06/2022. potassium 3.6 on 01/06/2024. Acute sinusitis Anemia Hemoglobin 12.9 with iron 75, vitamin B12 834 on 10/06/2022. Hemoglobin 12.9 on 01/06/2024. Iron 52 with 15% saturation and ferritin 12.4 with vitamin B12 565 and folic acid 7.7 on 02/19/2024. Cerebrovascular accident Attributed to hypertension. No residual deficits. Acute kidney injury Kidney stone Abnormal fasting glucose (08/01/22) Glucose 103 on 08/01/2022. Fasting glucose 105 on 10/06/2022. Encounter for wellness examination in adult Tear of medial meniscus of right knee Status post partial medial meniscectomy with synovectomy April 28, [address] Thurman. Degenerative arthritis of knee, bilateral Amputation of third toe, left, traumatic Lawnmower injury Community acquired pneumonia (12/30/21) COVID negative. Chest x-ray 01/01/2022 with bilateral patchy infiltrates right lower lobe and left upper lobe. Osteoarthritis of left knee Gastro-esophageal reflux disease without esophagitis Obstructive sleep apnea (~07/09/17) Intolerant to CPAP. home sleep study on 07/09/2017 with BRIAN with AHI of 25.1 with oxygen saturation down to 90%. CPAP titration on 08/16/2017 with CPAP at 8 cm water pressure with AirFit P 10 medium interface. BMI 34.0-34.9,adult Swelling of elbow Pain of elbow on movement Right elbow pain Erectile dysfunction Right leg pain Dental abscess Tobacco use disorder, continuous 1 pack of cigarettes daily. Peptic ulcer disease Seasonal allergic rhinitis Laceration of multiple sites of scalp and neck Anxiety Acute bronchitis Acute non-recurrent maxillary sinusitis Left foot pain Ataxia Chronic depression Essential (primary) hypertension Mixed hyperlipidemia Total cholesterol 184, triglycerides 92, HDL 46, LDL 118 on 08/01/2022. Surgical History Surgical History Status post medial meniscectomy of right knee (~04/28/22) Partial medial meniscectomy with synovectomy. History of arthroscopy of left knee Family History Family History Grandparent Acute myocardial infarction, Onset Age: 52 Family history of liver disease, Onset Age: 60 Family history of malignant neoplasm, Onset Age: 70 Father Hypertension Heart disease Cerebrovascular accident Mother Hypertension Social History Social History Social History: Mr. Mcqueen lives at home with his . He is independent in his daily activities. 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 His PCP is Dr. Islas. He designates his , Eugenia, as his surrogate decision maker and he would like to be a full code. Smoking packs per day: 0.5 Smoking cigarettes per day: 10.0 Years smoked: 30 Smoking pack-years: 15.00 Smoking status: Current every day smoker Tobacco type: cigarettes Second hand tobacco smoke exposure: Yes Alcohol intake: current Drinks per week: 4 Alcohol use details: Beer. 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 Spiritual care concerns: No Exam Const: General: healthy appearing and no acute distress Nutritional Appearance: well nourished Orientation/consciousness: patient oriented x3 Limitations: no limitations Chest: Chest palpation & inspection: normal inspection of the chest Resp: Effort & Inspection: normal respiratory effort Auscultation: clear to auscultation bilaterally Cardio: Rate: regular rate Skin: General skin exam: normal color Rashes: no rashes Wounds: no wounds Neuro: General: patient oriented x3 Extrem: Other: tender and swollen over atfl and prox 5 th metatarsal Course Vital Signs Vital signs: Vital Signs Temperature 97.8 F 05/10/25 11:50 Pulse Rate 78 05/10/25 11:50 Respiratory Rate 16 05/10/25 11:50 Blood Pressure 166/96 H 05/10/25 11:50 Pulse Oximetry 98 05/10/25 11:50 Oxygen Delivery Room Air 05/10/25 11:50 Temperature 97.8 F 05/10/25 11:50 Pulse Rate 70 05/10/25 15:04 Respiratory Rate 18 05/10/25 15:04 Blood Pressure 142/82 H 05/10/25 15:04 Pulse Oximetry 99 05/10/25 15:04 Oxygen Delivery Room Air 05/10/25 11:50 MDM - Extremity Injury (Lower) MDM Narrative Medical decision making narrative: sprain vs fx of foot and ankle Imaging Data Attestation: I personally reviewed and interpreted this imaging study as follows: My impression: no fx Radiologist's impression: [place] [id number] [place], [place] [id number] XRay Report Signed Patient: Avi Mcqueen : 1965 MR#: [id number] Age: 60 Acct:[id number] Loc: [facility] ADM Date: 05/10/[address]: Ordering Physician: Beth Briones III, DO Date of Service: 05/10/25 Procedure(s): XR ankle RT 2V; XR foot RT min 3V Accession Number(s): [id number]; [id number] cc: Beth Briones David III, DO~ EXAMINATION: XR ankle RT 2V, XR foot RT min 3V DATE: 05/10/2025 12:09 INDICATION: Lateral right foot and ankle swelling and pain post injury TECHNIQUE: 1. Anteroposterior and lateral view of the right ankle were obtained. 2. Dorsoplantar, two oblique and lateral views of the right foot were obtained. COMPARISON: None. FINDINGS: Alignment of the right foot and ankle is normal. No fracture or osteochondral lesion. 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 No ankle joint effusion. Soft tissue swelling about the ankle most prominent laterally and extending over the dorsolateral aspect of the mid and hindfoot. IMPRESSION: 1. No acute osseous abnormality. Reviewed, dictated and finalized at location A. ACQUISITION MANAGER Please be advised this is a medical document. It is intended for usrq-em-swel communication. It is written in medical language and may contain unfamiliar abbreviations or verbiage. Medical documents are intended to carry relevant information, facts as evident, and the clinical opinion of the practitioner at the time of the encounter. This report may have been done utilizing a voice recognition system. Attempts have been made to correct errors. However, there may be uncorrected grammatical, spelling, and recognition errors present. The file time of this note does not necessarily represent the time of service. Dictated By: Stephon Steward MD 05/10/25 1213 Signed By: <Electronically signed by Stephon Steward MD in OV> 05/10/25 [facility] [address] XRay Report Signed Patient: Avi Mcqueen : 1965 MR#: [id number] Age: 60 Acct:[id number] Loc: [facility] ADM Date: 05/10/[address]: Ordering Physician: Beth Briones III, DO Date of Service: 05/10/25 Procedure(s): XR ankle RT 2V; XR foot RT min 3V Accession Number(s): [id number]; [id number] cc: Beth Briones III, ~ EXAMINATION: XR ankle RT 2V, XR foot RT min 3V DATE: 05/10/2025 12:09 INDICATION: Lateral right foot and ankle swelling and pain post injury TECHNIQUE: 1. Anteroposterior and lateral view of the right ankle were obtained. 2. Dorsoplantar, two oblique and lateral views of the right foot were obtained. COMPARISON: None. FINDINGS: Alignment of the right foot and ankle is normal. No fracture or osteochondral lesion. 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 No ankle joint effusion. Soft tissue swelling about the ankle most prominent laterally and extending over the dorsolateral aspect of the mid and hindfoot. IMPRESSION: 1. No acute osseous abnormality. Reviewed, dictated and finalized at location A. ACQUISITION MANAGER Please be advised this is a medical document. It is intended for [id number]-fxkn communication. It is written in medical language and may contain unfamiliar abbreviations or verbiage. Medical documents are intended to carry relevant information, facts as evident, and the clinical opinion of the practitioner at the time of the encounter. This report may have been done utilizing a voice recognition system. Attempts have been made to correct errors. However, there may be uncorrected grammatical, spelling, and recognition errors present. The file time of this note does not necessarily represent the time of service. Dictated By: Stephon Steward MD 05/10/25 1213 Signed By: <Electronically signed by Stephon Steward MD in OV> 05/10/25 1217 Discharge Plan Discharge Clinical Impression: Right ankle sprain Patient Disposition: Home Condition: Stable Instructions: Antibiotic Form, Ankle Sprain (DC) Patient Language: Kinyarwanda Prescriptions: New naproxen [Naprosyn] 500 mg tablet 500 mg PO BID Qty: 20 0RF No Action tadalafil 10 mg tablet 10 mg PO DAILY PRN (Reason: Sexual Activity) benzonatate 200 mg capsule 200 mg PO TID PRN (Reason: cough) Qty: 20 0RF methylprednisolone [Medrol (Mauricio)] 4 mg tablets,dose pack See Rx Instructions .ROUTE .COMPLEX Qty: 21 0RF Rx Instructions: orally per package directions amoxicillin-pot clavulanate 875-125 mg tablet 1 tablet PO Q12H 7 Days Qty: 14 0RF bupropion HCl [Wellbutrin XL] 150 mg tablet extended release 24 hr 150 mg PO QAM Qty: 30 11RF irbesartan 300 mg tablet 300 mg PO DAILY Qty: 90 3RF amlodipine 5 mg tablet 5 mg PO . q.a.m. Qty: 90 3RF chlordiazepoxide-clidinium [Librax (with clidinium)] 5-2.5 mg capsule 1 cap PO BID PRN (Reason: diarrhea) Qty: 30 0RF duloxetine 60 mg capsule,delayed release(DR/EC) 60 mg PO DAILY Qty: 90 3RF colestipol 1 gram tablet 1 g PO BID 90 Days Qty: 180 3RF tadalafil 20 mg tablet 20 mg PO DAILY PRN (Reason: Sexual Activity) Qty: 90 0RF Rx Instructions: administer approximately 30min before sexual activity; do not use more than 1 dose per 24hrs sands pay with good Rx discount fluticasone propionate [Flonase Allergy Relief] 50 mcg/actuation spray,suspension 1 spray intranasal Q12H Qty: 16 11RF Rx Instructions: administer into each nostril Follow-up/Referrals: Noam Islas MD [Physician, Family Practice]
[2025-05-10 15:04] VITALS: BP 142/82; PULSE 70; RESP 18; O2SAT 99
--- OUTSIDE RECORDS SUMMARY | 2025-05-10 22:50 | XMS_ITS | Clinical Summary ---
Author Organization [facility] Address [address] [place] [address] Phone Care Team Providers Care Health Care Coordinator Name Role Phone Noam Islas MD Primary Care Provider Allergies No known active allergies Medications BYSTOLIC 10 MG Tablet Take 1 Tab by mouth daily. 3 9 Active escitalopram (LEXAPRO) 10 MG Tablet Take 10 mg by mouth daily. 4 9 Active irbesartan (AVAPRO) 300 MG Tablet TAKE ONE TABLET BY MOUTH ONCE A DAY FOR HYPERTENSION 11 9 Active Active Problems Problem Noted Date Diagnosed Date Vertigo 01/05/2019 Tinnitus of right ear 01/05/2019 Concussion w/o coma, sequela 01/05/2019 Social History Tobacco Use Types Packs/Day Years Used Date Smoking Tobacco: Every Day Cigarettes Smokeless Tobacco: Never Alcohol Use Standard Drinks/Week Comments Yes 0 (1 standard drink = 0.6 oz pur e alcohol) Sex and Gender Information Value Date Recorded Sex Assigned at Not on file Legal Sex Male 7:24 PM CDT Gender Identity Not on file Sexual Orientation Not on file Last Filed Vital Signs Vital Sign Reading Time Taken Comments Blood Pressure 128/78 01/05/2019 1:27 PM CDT Pulse 69 01/05/2019 1:27 PM CDT Temperature 36.2 C (97.1 F) 01/05/2019 1:27 PM CDT Respiratory Rate 18 01/05/2019 1:27 PM CDT Oxygen Saturation 98% 01/05/2019 1:27 PM CDT Inhaled Oxygen Concentration - - Weight 105.2 kg (232 lb) 01/05/2019 1:27 PM CDT Height 172.7 cm (5' 8) 01/05/2019 1:27 PM CDT Body Mass Index 35.28 01/05/2019 1:27 PM CDT Plan of Treatment Health Maintenance Due Date Last Done Comments Hepatitis C Virus (HCV) Screening 1965 TdaP Immunization 1965 Varicella Immunization (1 of 2 - 13+ 2-dose series) 1979 Hepatitis B Immunization (1 of 3 - 19+ 3-dose series) 1985 Cologuard 2011 Colonoscopy 2011 Colorectal Cancer Screening 2011 Immunochemical Fecal Occult Blood 2011 Pneumococcal Immunization (5 0+ years) (1 of 1 - PCV) 2016 Zoster Immunization (1 of 2) 2016 Influenza Immunization (#1) 2025 SARS-COV-2 Immunization (1 - 2024- season) 2025 Respiratory Syncytial Virus (RSV) Immunization (Adult) (1 - 1-dose 75+ series) 2041 Human Papillomavirus (HPV) Immunization Aged Out No longer eligible b ased on patient's age to complete this topic Meningococcal Immunization (ACWY) Aged Out No longer eligible based on patient's age to complete this topic Rotavirus Immunization Aged Out No lo nger eligible based on patient's age to complete this topic Insurance [facility] Member Subscriber Plan / Payer (Ef fective 2018-Present) Name:Avi Hathaway Relation to Subscriber:Self Name:Avi Hathaway Payer ID:[id number] Group ID:[id number] Type:Not on file Address: [address] [place] [id number] Care Teams Health Care Coordinator Relationship Specialty Start Date End Date Noam Islas MD [address] [address] PCP - General Family Medicine 12/24/18
== END 2025-05-10 15:00 | disposition home or self-care (01) ==
LOC: ANHED 14:49
PROVIDERS: Emergency Provider Emergency Medicine
DX: S93.401A Sprain of unspecified ligament of right ankle, initial encounter (principal); X58.XXXA Exposure to other specified factors, initial encounter; G20.A1 Parkinson's disease without dyskinesia, without mention of fluctuations; F43.12 Post-traumatic stress disorder, chronic; Z86.73 Personal history of transient ischemic attack (TIA), and cerebral infarction without residual deficits; Z89.422 Acquired absence of other left toe(s); K21.9 Gastro-esophageal reflux disease without esophagitis; G47.33 Obstructive sleep apnea (adult) (pediatric); I10 Essential (primary) hypertension; E78.2 Mixed hyperlipidemia; F17.210 Nicotine dependence, cigarettes, uncomplicated
CPT/HCPCS: 73600; 73630; 99283